=== PATIENT | female | born 1970 | race Caucasian/White ===

== ENCOUNTER → 2016-05-13 | Emergency (ER) | payer MEDICAID ==
[~2016-05-13] VITALS: Ht 170.2 cm; Wt 111.8 kg
[~2016-05-13] MED LIST: AMIO100T4 PO; AMIO200T2 PO; AMIO400T4 PO; ASPI-479 PO; ASPI325T4; ASPIRIN 81 MG CHEW (CHILDREN'S ASA) PO ONE; ATOR40TA2 PO; CARV25TA30 PO; CEPH500C PO; DGX.25T PO; ESCI20TA39 PO; FURO20TA4 PO; FURO40TA4 PO; KCL20TCR PO; LEVO125T70 PO; LISI5TAB14 PO; LOVA40TA2 PO; LSNP10T PO; MAGN400T26 PO; MAGN64TA8 PO; METO-270 PO; METO-71 PO; MEXI150C PO; NFLOSA25TA PO; NITR0.4T SL; NITR1PAT26 TD; NITR1PAT62 TD; NITROGLYCERIN SUBLINGUAL 0.4 MG (NITROQUICK) TABLET SL PRN; ONDANSETRON 2 MG/ML (Z0FRAN) 2 ML VIAL IV ONE; PARO20TA57 PO; QUET300T3 PO; RANO10003 PO; RANO500T3 PO; RIVA20TA PO; SODIUM CHLORIDE FLUSH 10 ML SYR IV PRN; SODIUM CHLORIDE FLUSH 3 ML SYR IV PRN; SOTA80TA PO; SPIR25TA PO; SPRN25T PO; TICA90TA PO; VENL150C PO; VENL75TA6 PO; VNL75T GT; morphine INJ 4 MG/ML 1 ML SYRINGE IV PRN
--- OUTSIDE RECORDS SUMMARY | 2016-05-13 22:40 | XMS REPORT | Continuity of Care Document ---
Author Author [facility] Organization [facility] Address Unknown Phone Unavailable Care Team Providers Care Human Resources Director Name Role Phone Terrell Pennington PCP [phone] Source Comments Some departments are not documenting in the electronic medical record. If you do not see the information that you expected, contact Release of Information in the Health Information Management department at [phone] for further assistance in locating additional records.[facility] Active Allergies and Adverse Reactions No Known Allergies Current Medications Prescription Sig. Disp. Refills Start End Date Status Date escitalopram oxalate Take 20 mg by mouth Active (LEXAPRO) 10 mg tablet daily. carvedilol (COREG) 25 mg Take 12.5 mg by mouth Active tablet twice daily. Take with food. ranolazine ER (RANEXA) Take 1,000 mg by mouth Active 1,000 mg tablet twice daily. lisinopril (PRINIVIL; Take 5 mg by mouth daily. Active ZESTRIL) 10 mg tablet furosemide (LASIX) 40 mg Take 40 mg by mouth Active tablet daily. aspirin EC 81 mg tablet Take 81 mg by mouth Active daily. Take with food. atorvastatin (LIPITOR) 80 Take 80 mg by mouth at Active mg tablet bedtime daily. levothyroxine (SYNTHROID) Take 150 mcg by mouth Active 150 mcg tablet daily. nitroglycerin (NITROSTAT) Place 0.4 mg under tongue Active 0.4 mg tablet as Needed for Chest Pain. sotalol (BETAPACE) 80 mg Take 1 Tab by mouth twice 180 Tab 3 12/10/19 Active tablet daily. 16 mexiletine (MEXITIL) 150 Take 1 Cap by mouth twice 180 Cap 3 12/10/19 Active mg capsule daily. 16 QUEtiapine XR(+) Take 1 Tab by mouth at Active (SEROQUEL XR) 300 mg bedtime daily. tablet potassium chloride SR Take 20 mEq by mouth Active (K-DUR) 20 mEq tablet twice daily. Take with a meal and a full glass of water. rivaroxaban (XARELTO) 20 Take 1 Tab by mouth daily 30 Tab 0 05/09/20 06/08/19 Active mg tablet with dinner for 30 days. 16 17 Take with food. Once completed with Xarelto can resume Brilinta BID as previously taken. magnesium oxide (MAG-OX) Take 1 Tab by mouth 90 Tab 3 05/12/19 Active 400 mg tablet daily. 17 ticagrelor (BRILINTA) 90 Take 90 mg by mouth twice 05/09/20 Discontin mg daily. 16 ued magnesium oxide (MAG-OX) Take 1 Tab by mouth 180 Tab 3 05/09/2007/27 Discontin 400 mg tablet daily. 16 17 ued Active Problems Problem Noted Date VT (ventricular tachycardia) (HCC) 05/07/2016 Biventricular ICD (implantable cardioverter-defibrillator) in place 2015 Overview: 10/08/15 Agenus [id number] SN: [id number] (Dr. Salgado) Coronary atherosclerosis of curyung coronary artery Overview: LUTHER to proximal LAD in 2005 at [facility] LUTHER, Integrity to mid RCA in 2011 at [facility] 07/16/15 Left heart cath ([facility]): Occluded RCA with collateral flow. Mild restenosis in prior LAD stent. HLD (hyperlipidemia) HTN (hypertension) Hypothyroidism Ischemic cardiomyopathy Overview: 07/14/15 Echo ([facility]): LV systolic function moderate to severely reduced. EF 25-30%. Inferior wall akinesis. Mild MR. LV severely dilated. LA mildly dilated. NJ (myocardial infarction) (HCC) Paroxysmal atrial fibrillation (HCC) Sustained ventricular tachycardia (HCC) Systolic heart failure (HCC) Most Recent Encounters Date Type Specialty Providers Description 05/12/2016 Refill Cardiology Myrtle Dixon, shuttle repairer Refill 05/07/2016 Documentation Cardiology Aura Dias RN 05/07/2016 Surgery Cardiology Candice Moody, Ventricular Tachycardia Radiofrequency Ablation 05/05/2016 Office Visit Cardiology Candice Moody, Cardiac Eval - H&P for VT ablation 03/19/16; needs labs today 05/05/2016 [facility] Cardiology LakkiredCandice tran Encounter MD 05/05/2016 Telephone Cardiology Jaycob Clement RN Procedure - review pre-procedure instructions for 05/07 VT ablation w/ DJL 05/05/2016 Pre-Admit Cardiology Abril Rubin APRN-C Orders Only 04/21/2016 Documentation Cardiology Kyle Ponce RN Precertification - Approval for EPS/RFA through [employer] 03/16/2016 Telephone Cardiology Kianna Kent LPN Procedure - Ablation 03/13/2016 Orders Only Cardiology Denise Gold Biventricular ICD (implantable cardioverter-defibrillato r) in place (Primary Dx) 03/05/2016 Documentation Cardiology Kyle Ponce RN Precertification - Approval for EPS/RFA through [employer] Social History Tobacco Use Types Packs/Day Years Used Date Current Every Day Smoker Cigarettes 0.5 22 Smokeless Tobacco: Never Used Alcohol Use Drinks/Week oz/Week Comments No 0 Standard 0.0 drinks or equivalent Last Filed Vital Signs Vital Sign Reading Time Taken Blood Pressure 111/61 05/09/2016 12:03 PM MATERIAL HANDLER Pulse 76 05/09/2016 10:00 AM MATERIAL HANDLER Temperature 36.4 C (97.6 F) 05/09/2016 12:03 PM MATERIAL HANDLER Respiratory Rate - - Height 1.702 m (5' 7") 05/07/2016 5:55 AM MATERIAL HANDLER Weight 113.3 kg (249 lb 12.5 oz) 05/09/2016 6:00 AM MATERIAL HANDLER Body Mass Index 39.11 05/09/2016 6:00 AM MATERIAL HANDLER Oxygen Saturation 97% 05/09/2016 12:03 PM MATERIAL HANDLER Plan of Care Date Type Specialty Providers Description 06/05/2016 Appointment Cardiology Health Maintenance Due Date Last Done Comments Physical (Comprehensive) 02/20/1976 Exam Pertussis Vaccine 02/20/1980 Tetanus Vaccine 1986 Cervical Cancer Screening 1990 Breast Cancer Screening 2009 Influenza Vaccine 01/09/2016 Procedures from Last 3 Months Procedure Name Priority Date/Time Associated Diagnosis Comments TELEMETRY STRIPS-SCAN 05/13/2016 Results for this 11:33 AM MATERIAL HANDLER procedure are in the results section. ECG-SCAN 05/13/2016 Results for this 9:21 AM MATERIAL HANDLER procedure are in the results section. ECG-SCAN 05/13/2016 Results for this 9:21 AM MATERIAL HANDLER procedure are in the results section. ANESTHESIA ARTERIAL LINE Routine 05/07/2016 Results for this INSERTION 8:59 AM MATERIAL HANDLER procedure are in the results section. Results from Last 3 Months TELEMETRY STRIPS-SCAN (05/13/2016 11:33 AM) Narrative Ordered by an unspecified provider. ECG-SCAN (05/13/2016 9:21 AM) Narrative Ordered by an unspecified provider. ECG-SCAN (05/13/2016 9:21 AM) Narrative Ordered by an unspecified provider. MAGNESIUM (05/09/2016 3:05 AM)Only the most recent of 4 results within the time period is included. Component Value Range Magnesium 2.0 1.6-2.6 mg/dL Specimen Blood BASIC METABOLIC PANEL (05/09/2016 3:05 AM)Only the most recent of 5 results within the time period is included. Component Value Range Sodium 135 (L) 137-147 MMOL/L Potassium 4.2 3.5-5.1 MMOL/L Chloride 104 98-110 MMOL/L CO2 26 21-30 MMOL/L Anion Gap 5 3-12 Glucose 89 70-100 MG/DL Blood Urea Nitrogen 12 7-25 MG/DL Creatinine 0.84 0.4-1.00 MG/DL Calcium 8.4 (L) 8.5-10.6 MG/DL eGFR Non >60Comment: >60 mL/min The eGFR is not validated for use in drug dosing adjustments. Continue to use estimated creatinine clearance per dosing reference text. Please contact the Clinical Pharmacist for questions. eGFR >60Comment: >60 mL/min The eGFR is not validated for use in drug dosing adjustments. Continue to use estimated creatinine clearance per dosing reference text. Please contact the Clinical Pharmacist for questions. Specimen Blood BNP (B-TYPE NATRIURETIC PEPTI) (05/09/2016 3:05 AM) Component Value Range B Type Natriuretic 150.0 (H) 0-100 PG/ML Peptide Specimen Blood CBC (05/08/2016 10:05 AM)Only the most recent of 2 results within the time period is included. Component Value Range White Blood Cells 9.7 4.5-11.0 K/UL RBC 3.52 (L) 4.0-5.0 M/UL Hemoglobin 10.7 (L) 12.0-15.0 GM/DL Hematocrit 33.1 (L) 36-45 % MCV 94.1 80-100 FL MCH 30.5 26-34 PG MCHC 32.4 32.0-36.0 G/DL RDW 16.0 (H) 11-15 % Platelet Count 242 150-400 K/UL MPV 8.0 7-11 FL Specimen Blood DEVICE EVALUATION - ICD (05/07/2016 3:34 PM)Only the most recent of 2 results within the time period is included. Component Value Range Device Implanted By Dr Damian simpson [facility] EP Device Followed by BRITTANY and Damian in [facility] Name RENAY/EOL Indicator 2.73V Generator [facility] [employer] Generator Model # Viva XT CRTD [id number] Generator Serial # [id number] Generator Implnat Date 10/08/15 Atrial Lead [facility] [employer] Atrial Lead Model # 5076 Atrial Lead Serial # [id number] Atrial Lead Implant Date 04/15/10 RV Lead [facility] [employer] RV Lead Model # 6947 RV Lead Serial # [id number] RV Lead Implant Date 04/15/10 LV Lead [facility] [employer] LV Lead Model # 4196 LV Lead Serial # [id number] LV Lead Implant Date 04/15/10 Pacemaker Dependant No Device [place] [employer] Express Transmitter Compatible Device Type ASSISTANT KITCHEN MANAGER-D EP Device Followed By Other Date of Last Programming 05/05/16 Date of Last 05/05/16 Interrogation Device Mode DDD Lower Rate Limit 50 Upper Rate Limit 130 Sensor Rate Limit 120 Pace AV Delay 150 Sense AV Delay 130 VT Monitor OFF VT Detect Rate (bpm) 167 bp, VT Detect Rate Tx ATP, Shock FVT Detect Rate (bpm) 214 bpm FVT Detect Rate Tx ATP, Shock VF Detect Rate (bpm) 188 bpm VF Detect Rate Tx ATP, Shock Mode Switch (bpm) 150 Date of Last ICM 05/05/16 Evaluation Enrollment Date req trsfr 05/05/16 Remote Monitoring? Yes HF Patient No Narrative KU IP Post VT ablation check by MDT rep. WNL. See attached for more information. 94.9% pacing. 32 min/day V sensed events since 05/05/16. LV output adjusted based on thresholds. See attached for more information. Routed to Dr Moody in lab. POC ACTIVATED CLOTTING TIME (05/07/2016 3:05 PM)Only the most recent of 2 results within the time period is included. Component Value Range Activated Clotting Time 173 s EP STUDY (05/07/2016 12:52 PM) Narrative OYSTER FLOATER: Candice Moody MD Fellow: Jair Magana MD STUDY: MAGNETIC-VT TYPE OF PROCEDURE: Comprehensive electrophysiologic study with RV catheter and LV mapping. Right femoral arterial line placement. Right and left femoral venous access placement. Transseptal puncture with left atrial and left ventricular access. General anesthesia Three-dimensional electroanatomic mapping of the left ventricle. Stereotaxis navigation system for mapping and ablation. Radiofrequency ablation of the myocardial substrate for ventricular tachycardia. - ablation in left ventricle Interventricular pacing. Reprogramming of the ASSISTANT KITCHEN MANAGER-D before and after the procedure. Intracardiac echocardiography. Defibrillation twice for unstable VT induced during the study CONSENT: The risks, benefits and alternatives to the procedure have been explained to the patient and the family member in greater length. They expressed their understanding and wanted to proceed. General anesthesia was given. Blood pressure, oxygen saturation, pulse rate were monitor throughout the procedure by physicians, nursing staff and techs. Supplemental oxygen was used when it was necessary. LOCAL ANESTHESIA: 0.25% marcaine was used for local anesthesia. CATHETER PLACEMENT: The right and left groin were prepped and draped in sterile fashion. After injection of marcaine, access to arterial and venous system was made using modified Seldinger technique and catheters were placed as below. A hexcapolar catheter advanced to the right ventricular apex via an 8 Lithuanian sheath in the left femoral vein. A Butlr AcuNav intracardiac echo catheter was advanced to the right atrium via an 11 Lithuanian sheath in the left groin and was used for transseptal access and ablation. A 5French sheath was placed in the right femoral arteryand connected to pressure bag to monitor blood pressure during the procedure. An 8.5 Lithuanian short sheath was placed in the right femoral vein and was used for mapping and ablation. This sheath was exchanged to a Brooks at the time of transseptal access and exchanged back to 8.5 Lithuanian at the completion of the procedure. PACEMAKER PROGRAMMING AND REPROGRAMMING: Patient's ASSISTANT KITCHEN MANAGER-Dwas programmed to DDD rate of 60 and treatment was programmed to "off" at the beginning of the procedure. Patient also was given abxIV to protect device infection. At the completion of the procedure, ASSISTANT KITCHEN MANAGER-D was programmed to DDDR and treatment was programmed to "on". INTRACARDIAC ECHOCARDIOGRAPHY: We passed the 10-Lithuanian Siemens AcuNav catheter through the left femoral venous access into the mid right atrium and cardiac anatomy assessed. There was severe enlargement of all 4 chambers. Left ventricular ejection fraction is about 25 percent with severely depressed function. LV was spherical. The left atrium was also grossly dilated. There was no evidence of any apical clot, pericardial effusions. The right ventricular lead, right atrial lead and the CS lead were clearly apparent with no hanging clots. At this point, we proceeded to do transseptal puncture. SINGLE TRANSSEPTAL PUNCTURE WITH LEFT ATRIAL, LEFT VENTRICULAR ACCESS: Using the [place] needle under the guidance of intracardiac echocardiography and fluoroscopy, we crossed the interatrial septum and accessed the left ventricle with Brooks sheath. The contrast was used to locate the septum. OThe patient was started on heparin after the first transseptal access and ACT was kept>350s. Heparin effect reversed at the completion of the procedure. STEREOTAXIS NAVIGATION AND MAPPING: Using the RMT stereotaxis catheter, we placed it in the LV for mapping and ablation. THREE-DIMENSIONAL ELECTROANATOMICAL MAPPING: We created a voltage and activation map of the left ventricle with more than 500 points with excellent details of scarring and healthy tissue. We delineated the scar which was mostly limited to the inferior aspect of the LV extending from the base all the way towards the distal one third of the LV. There was also patchy scar in the LCx distribution.We also tagged the late potentials and the fractionated potentials along the scar as well as the scar border. While mapping she went into VT multiple times during the procedure. She was also inducible with burst pacing and ventricular extrastimulus pacing. She had 4 VT morphologies all together. VT1 - RBBB type biphasic in precordial leads, superior axis positive in 1 and avL and avR - origin likely from mid inferoseptum scar border- CL380 msec - stable VT2 - LBBB type biphasic in precordial leads, superior axis similar to VT1 except lead 1 which is biphasic and slightly more negative than VT1 precordial leads so more mid inferior septum origin slighly more anterior than VT1 exit - CL 280 msec - unstable - required Defibrillation VT3-RBBB type biphasic in precordial leads, superior axis, biphasic in lead 1and positive in avL similar to VT2 but much slower at 680 msec CL - stable VT4 - RBBB type biphasic in precordial leads, inferior axis, negative in lead 1 and avL - origin from mid anterolateral LV - CL 380 msec - unstable - required defibrillation VT5- RBBB typebiphasic in precordial leads, inferior axis, predominantly negative in lead 1 and avL - origin from mid lateral LV - CL 410 msec - stable - this was entrained WE found extensive channels through out the scar region in the inferior scar. She kept going into VT with catheter contact with these channels while mapping in her inferior scar. Surprisingly she had VT from her lateral scar as well while mapping due to catheter contact. We ablated all the LAVA and mid diastolic and late diastolic potentials. WE ablated wherever she had VT with catheter contact. WE ablated whatever we though was an isthmus site based on concealed fusion while pacing during VT. We then went ahead and did some substrate modification of all her border areas.After this, we performed an EP study and showed that we could not induce his VT despite aggressive RV burst pacing and ventricular extrastimulus pacing using two ventricular extrasystoles. Her EP study findings were as follows:Her transseptal pressure was 34/12. Baseline: SOLAR SALES at 750 msec CL, P 89 msec, P 147 msec QRS 205 msec QT 470 msec Final: [employer] CL 740 msec P 90 msec SD 150 msec QRS 174 msec QT 489 msec Her device was reprogrammed.His therapies were switched on at the end of ablation. She was then transferred to the pre/post area. Total ablation time: 5296 sec Assessment: Successful VT ablation of 5 different morphology VTs. ABlation of border zones of inferior scar and within lateral scar Extensive inferior scar and patchy basal naz lateral scar Severly negatively remodelled LV Plan: Anticoagulation for 4 weeks Continue antiarrythmic therapy with sotalol. I was present in the EP lab through out the critical portions of the procedure and supervised the fellow. I was present for the entire procedure and had personally supervised the fellow through out the case. Candice Moody MD POC ACTIVATED CLOTTING TIME (05/07/2016 12:03 PM)Only the most recent of 8 results within the time period is included. Component Value Range Activated Clotting Time 355 s ANESTHESIA ARTERIAL LINE INSERTION (05/07/2016 8:59 AM) Fran Miranda DO 05/07/20168:59 AM Anesthesia Procedure: Arterial Line Placement A-LINE INSERTION Date/Time: 05/07/2016 8:59 AM Patient location: OR Indications: multiple ABGs and hemodynamic monitoring Staff Anesthesiologist: TREY MIRANDA Preprocedure checklist performed: 2 patient identifiers, risks & benefits discussed, patient evaluated, timeout performed, consent obtained and patient being monitored Sterile technique: - Proper hand washing - Cap, mask - Sterile gloves - Skin prep for antisepsis Arterial Line Procedure Patient sedated: yes (see MAR) Sedation type: fentanyl and midazolam; Artery prepped with chlorhexidine; skin prep agent completely dried prior to procedure. Location: radial artery Technique: palpation Needle gauge: 20 G Number of attempts: 2 Procedure Outcome Catheter secured with adhesive dressing applied Events: no complications noted during insertion and skin intact, warm, and dry Observation: pt tolerated well POC PT/INR (05/07/2016 6:39 AM) Component Value Range INR POC 1.0 0.8-1.2 TYPE & CROSSMATCH (05/07/2016 6:36 AM) Component Value Range Units Ordered 2 Crossmatch Expires 05/10/2016 Record Check FOUND ABO/RH(D) O POS Antibody Screen NEG Specimen Blood TEST-URINE (05/07/2016 6:15 AM) Component Value Range Urine-HCG NEG Specific [place] 1.029 Specimen Urine
[2016-05-13 23:20] LABS: ALBUMIN 3.9 g/dL (3.4-5.0); CALCULATED IONIZED CALCIUM 3.9 mg/dL (3.8-4.6); TOTAL PROTEIN 7.3 g/dL (6.4-8.5)
[2016-05-13 23:21] LABS: BASOPHILS % (AUTO) 0 % (0-2); EOSINOPHILS # (AUTO) 0.2 10^3uL; EOSINOPHILS % (AUTO) 2 % (0-4); MEAN CORPUSCULAR HEMOGLOBIN 30.7 PG (26.0-34.0); MEAN CORPUSCULAR HGB CONC 33.3 g/dL (31.0-37.0); MEAN CORPUSCULAR VOLUME 92 FL (80-100); MEAN PLATELET VOLUME 10.2 FL (6.0-9.5); MONOCYTES % (AUTO) 12 % (3-11); NEUTROPHILS # (AUTO) 5.7 X10^3; NEUTROPHILS % (AUTO) 64 % (51-67); PLATELET COUNT 237 10^3uL (150-450); WHITE BLOOD COUNT 8.95 10^3uL (4.0-11.0)
--- NOTE | 2016-05-13 23:22 | NUR ---
Did not admin ASA as patient was advised by 911 to take 4 baby asapirin and had already taken.
[2016-05-14 00:43] VITALS: BP 83/60
--- NOTE | 2016-05-14 07:23 | Diagnostic Imaging Report ---
INDICATION: Cardiac palpitation. 2315 hrs. FINDINGS: Since 03/26/2016, generalized cardiomegaly persists. Pulmonary vascularity is prominent without overt edema identified. Internal cardiac defibrillator device is noted without evidence of pneumothorax. IMPRESSION: Cardiomegaly and mildly prominent pulmonary vascularity. There is no overt edema or evidence of adverse change. Dictated by: Dictated on workstation # [id number]
== END | disposition short-term general hospital (02) ==
LOC: ED 22:35
DX: I48.91 Unspecified atrial fibrillation (principal); I25.10 Atherosclerotic heart disease of native coronary artery without angina pectoris; F17.210 Nicotine dependence, cigarettes, uncomplicated; Z95.810 Presence of automatic (implantable) cardiac defibrillator; J44.9 Chronic obstructive pulmonary disease, unspecified
CPT/HCPCS: 36415; 71010; 80053; 82550; 82553; 83735; 83880; 84484; 85025; 85610; 85730; 93005; 96360; 96361; 99285; J7030; 93010

== ENCOUNTER → 2016-05-13 | Outpatient (CLI) | payer MEDICAID ==
[~2016-05-13] MED LIST changes: -ASPIRIN 81 MG CHEW (CHILDREN'S ASA) PO ONE; -NITROGLYCERIN SUBLINGUAL 0.4 MG (NITROQUICK) TABLET SL PRN; -ONDANSETRON 2 MG/ML (Z0FRAN) 2 ML VIAL IV ONE; -SODIUM CHLORIDE FLUSH 10 ML SYR IV PRN; -SODIUM CHLORIDE FLUSH 3 ML SYR IV PRN; -morphine INJ 4 MG/ML 1 ML SYRINGE IV PRN
== END ==
LOC: EMS 22:20
PROVIDERS: ATTEND Family Medicine
DX: I49.8 Other specified cardiac arrhythmias (principal); Z95.0 Presence of cardiac pacemaker; Z95.818 Presence of other cardiac implants and grafts

== ENCOUNTER → 2016-05-14 | Outpatient (CLI) | payer MEDICAID | LOC: EMS 00:40 | PROVIDERS: ATTEND Family Medicine | DX: I48.91 Unspecified atrial fibrillation (principal); I21.4 Non-ST elevation (NSTEMI) myocardial infarction ==

== ENCOUNTER 2016-05-17 14:34 | Emergency (ER) | payer MEDICAID ==
[~2016-05-17] VITALS: Ht 170.2 cm; Wt 111.8 kg
[~2016-05-17 14:34] MED LIST changes: -MAGN64TA8 PO; -NFLOSA25TA PO; -SPIR25TA PO
--- OUTSIDE RECORDS SUMMARY | 2016-05-17 14:40 | XMS REPORT | Continuity of Care Document ---
Author Author [facility] Organization [facility] Address Unknown Phone Unavailable Care Team Providers [employer] Workers Name Role Phone Terrell Pennington PCP [phone] Source Comments Some departments are not documenting in the electronic medical record. If you do not see the information that you expected, contact Release of Information in the Health Information Management department at [phone] for further assistance in locating additional records.[facility] Active Allergies and Adverse Reactions No Known [...] (implantable cardioverter-defibrillator) in place 2015 Overview: 10/08/15 Immunologix [id number] SN: [id number] (Dr. Salgado) Coronary atherosclerosis of [place] coronary artery Overview: LUTHER to proximal LAD in 2005 at [facility] LUTHER, Integrity to mid RCA in 2011 at [facility] 07/16/15 Left heart cath ([facility]): Occluded RCA with collateral flow. Mild restenosis in prior LAD stent. HLD (hyperlipidemia) HTN (hypertension) Hypothyroidism Ischemic cardiomyopathy Overview: 07/14/15 Echo ([facility]): LV systolic function moderate to severely reduced. EF 25-30%. Inferior wall akinesis. Mild MR. LV severely dilated. LA mildly dilated. IA (myocardial infarction) (HCC) Paroxysmal atrial fibrillation (HCC) Sustained ventricular tachycardia (HCC) Systolic heart failure (HCC) Most Recent Encounters Date Type Specialty Providers Description 05/12/2016 Refill Cardiology Myrtle Dixon, glue clamp operator Refill 05/07/2016 Documentation Cardiology Aura Dias RN 05/07/2016 Surgery Cardiology Candice Moody, Ventricular Tachycardia Radiofrequency Ablation 05/05/2016 Office Visit Cardiology Candice Moody, Cardiac Eval - H&P for VT ablation 03/19/16; needs labs today 05/05/2016 [facility] Cardiology LakkiredCandice tran Encounter MD 05/05/2016 Telephone Cardiology Jaycob Clement RN Procedure - review pre-procedure instructions for 05/07 VT ablation w/ DJL 05/05/2016 Pre-Admit Cardiology Abril Rubin, TYING MACHINE OPERATOR-C Orders Only 04/21/2016 Documentation Cardiology Kyle Ponce RN Precertification - Approval for EPS/RFA through [employer] 03/16/2016 Telephone Cardiology Kianna Kent LPN Procedure - Ablation 03/13/2016 Orders Only Cardiology Denise Gold Biventricular ICD (implantable cardioverter-defibrillato r) in place (Primary Dx) 03/05/2016 Documentation Cardiology Kyle Ponce RN Precertification - Approval for EPS/RFA through [employer] Social History Tobacco Use Types Packs/Day Years Used Date Current Every Day Smoker Cigarettes 0.5 22 Smokeless Tobacco: Never Used Alcohol Use Drinks/Week oz/Week Comments No 0 Standard 0.0 drinks or equivalent Last Filed Vital Signs Vital Sign Reading Time Taken Blood Pressure 111/61 05/09/2016 12:03 PM WIRELESS WATCHER Pulse 76 05/09/2016 10:00 AM WIRELESS WATCHER Temperature 36.4 C (97.6 F) 05/09/2016 12:03 PM WIRELESS WATCHER Respiratory Rate - - Height 1.702 m (5' 7") 05/07/2016 5:55 AM WIRELESS WATCHER Weight 113.3 kg (249 lb 12.5 oz) 05/09/2016 6:00 AM WIRELESS WATCHER Body Mass Index 39.11 05/09/2016 6:00 AM WIRELESS WATCHER Oxygen Saturation 97% 05/09/2016 12:03 PM WIRELESS WATCHER Plan of Care Date Type Specialty Providers Description 05/26/2016 Appointment Cardiology 05/26/2016 Appointment Cardiology Candice Moody MD [address] [facility] [address] [place] [address] [phone] (Fax) 06/05/2016 Appointment Cardiology Health Maintenance Due Date Last Done Comments Physical (Comprehensive) 02/20/1976 Exam Pertussis Vaccine 02/20/1980 Tetanus Vaccine 1986 Cervical Cancer Screening 1990 Breast Cancer Screening 2009 Influenza Vaccine 01/09/2016 Procedures from Last 3 Months Procedure Name Priority Date/Time Associated Diagnosis Comments ECG UNCONFIRMED-SCAN 05/13/2016 Results for this 2:00 PM WIRELESS WATCHER procedure are in the results section. TELEMETRY STRIPS-SCAN 05/13/2016 Results for this 11:33 AM WIRELESS WATCHER procedure are in the results section. ECG-SCAN 05/13/2016 Results for this 9:21 AM WIRELESS WATCHER procedure are in the results section. ECG-SCAN 05/13/2016 Results for this 9:21 AM WIRELESS WATCHER procedure are in the results section. ANESTHESIA ARTERIAL LINE Routine 05/07/2016 Results for this INSERTION 8:59 AM WIRELESS WATCHER procedure are in the results section. Results from Last 3 Months ECG UNCONFIRMED-SCAN (05/13/2016 2:00 PM) Narrative Ordered by an unspecified provider. TELEMETRY STRIPS-SCAN (05/13/2016 11:33 AM) Narrative Ordered [...] Value Range Device Implanted By Dr Damian Green [place] EP Device Followed by BRITTANY and Damian in [facility] Name RENAY/EOL Indicator 2.73V Generator Linux Security Administrator [employer]onic Generator Model # Viva XT CRTD [id number] Generator Serial # [id number] Generator Implnat Date 10/08/15 Atrial Lead Linux Security Administrator [employer]onic Atrial Lead Model # 5076 Atrial Lead Serial # [id number] Atrial Lead Implant Date 04/15/10 RV Lead Linux Security Administrator [employer]onic RV Lead Model # 6947 RV Lead Serial # [id number] RV Lead Implant Date 04/15/10 LV Lead Linux Security Administrator Med[employer]onic LV Lead Model # 4196 LV Lead Serial # [id number] LV Lead Implant Date 04/15/10 Pacemaker Dependant No Device [place] Carelink Express Transmitter Compatible Device Type TRAIN STARTER-D EP Device Followed By Other Date of [...] s EP STUDY (05/07/2016 12:52 PM) Narrative ASSISTANT WRESTLING COACH: Candice Moody MD Fellow: Jair Magana MD [...] left ventricle Interventricular pacing. Reprogramming of the TRAIN STARTER-D before and after the procedure. Intracardiac echocardiography. [...] the right ventricular apex via an 8 Qatari sheath in the left femoral vein. A Siemens AcuNav intracardiac echo catheter was advanced to the right atrium via an 11 Qatari sheath in the left groin and was used for transseptal access and ablation. A 5French sheath was placed in the right femoral arteryand connected to pressure bag to monitor blood pressure during the procedure. An 8.5 Qatari short sheath was placed in the right femoral vein and was used for mapping and ablation. This sheath was exchanged to a Brooks at the time of transseptal access and exchanged back to 8.5 Qatari at the completion of the procedure. PACEMAKER PROGRAMMING AND REPROGRAMMING: Patient's TRAIN STARTER-Dwas programmed to DDD rate of 60 and treatment was programmed to "off" at the beginning of the procedure. Patient also was given abxIV to protect device infection. At the completion of the procedure, TRAIN STARTER-D was programmed to DDDR and treatment was programmed to "on". INTRACARDIAC ECHOCARDIOGRAPHY: We passed the 10-Qatari Siemens AcuNav catheter through the left femoral [...] procedure. STEREOTAXIS NAVIGATION AND MAPPING: Using the T stereotaxis catheter, we placed it in the [...] as follows:Her transseptal pressure was 34/12. Baseline: STATE HISTORICAL SOCIETY DIRECTOR at 750 msec CL, P 89 msec, P 147 msec QRS 205 msec QT 470 msec Final: STATE HISTORICAL SOCIETY DIRECTOR CL 740 msec P 90 msec ND 150 msec QRS 174 msec QT 489 [...] AM) Component Value Range Urine-HCG NEG Specific [place] 1.029 Specimen Urine
[2016-05-17] MEDS ORDERED: morphine INJ 4 MG/ML 1 ML SYRINGE IV PRN (14:45)
[2016-05-17] MEDS ORDERED: NITROGLYCERIN SUBLINGUAL 0.4 MG (NITROQUICK) TABLET SL PRN (14:45)
[2016-05-17] MEDS ORDERED: ASPIRIN 81 MG CHEW (CHILDREN'S ASA) PO ONE (14:45)
[2016-05-17] MEDS ORDERED: SODIUM CHLORIDE 250 ML IV PRN (14:45)
[2016-05-17] MEDS ORDERED: SODIUM CHLORIDE FLUSH 3 ML SYR IV PRN (14:45)
[2016-05-17] MEDS ORDERED: ONDANSETRON 2 MG/ML (Z0FRAN) 2 ML VIAL IV ONE (14:45)
[2016-05-17] MEDS ORDERED: SODIUM CHLORIDE FLUSH 10 ML SYR IV PRN (14:45)
[2016-05-17 15:04] LABS: BASOPHILS % (AUTO) 0 % (0-2); EOSINOPHILS # (AUTO) 0.1 10^3uL; EOSINOPHILS % (AUTO) 1 % (0-4); LYMPHOCYTES # (AUTO) 1.3 X10^3; MEAN CORPUSCULAR HEMOGLOBIN 31.4 PG (26.0-34.0); MEAN CORPUSCULAR HGB CONC 33.5 g/dL (31.0-37.0); MEAN CORPUSCULAR VOLUME 94 FL (80-100); MEAN PLATELET VOLUME 9.7 FL (6.0-9.5); MONOCYTES # (AUTO) 0.7 X10^3; MONOCYTES % (AUTO) 9 % (3-11); NEUTROPHILS # (AUTO) 5.9 X10^3; NEUTROPHILS % (AUTO) 73 % (51-67); PLATELET COUNT 258 10^3uL (150-450)
[2016-05-17 15:14] LABS: ALBUMIN 3.6 g/dL (3.4-5.0); CALCULATED IONIZED CALCIUM 3.8 mg/dL (3.8-4.6); TOTAL PROTEIN 7.2 g/dL (6.4-8.5)
--- NOTE | 2016-05-17 16:04 | Diagnostic Imaging Report ---
INDICATION: Chest pain. Pacemaker. COMPARISON: 05/13/16. EXAMINATION: Single view of the chest was obtained. FINDINGS: Cardiac enlargement without pulmonary edema. Lungs are clear. There is no pneumothorax, effusion or infiltrate. Pacemaker is stable. IMPRESSION: No acute cardiopulmonary findings. Dictated by: Dictated on workstation # [id number]
--- NOTE | 2016-05-17 16:38 | NUR ---
er dr gives order to take IV site out, pt laughing in room, asymptomatic
--- NOTE | 2016-05-17 16:38 | NUR ---
DR. MIKE SPEAKS WITH DR. DOUGLAS, PER PHONE, ABOUT FINDINGS/PLAN OF CARE.
--- NOTE | 2016-05-17 16:56 | NUR ---
dr conn called by er dr. luevano to go home, pt agrees to this, refuses wc for departure,
== END 2016-05-17 16:56 | disposition home or self-care (01) ==
LOC: EDUNIT# 14:34 → EDBD 14:34 → ED 14:35
DX: R00.2 Palpitations (principal); I45.10 Unspecified right bundle-branch block; R00.0 Tachycardia, unspecified
CPT/HCPCS: 36415; 71010; 80053; 82550; 82553; 83880; 84484; 85025; 85610; 85730; 93005; 96374; 99285; A9270; J2405; 93010

== ENCOUNTER → 2016-05-17 | Outpatient (CLI) | payer MEDICAID | LOC: EMS 14:30 | PROVIDERS: ATTEND Emergency Medicine | DX: R00.2 Palpitations (principal); Z95.0 Presence of cardiac pacemaker ==

== ENCOUNTER → 2016-05-28 | Outpatient (REF) | payer MEDICAID ==
[2016-05-28 17:30] LABS: MEAN CORPUSCULAR HEMOGLOBIN 29.7 PG (26.0-34.0); MEAN CORPUSCULAR VOLUME 93 FL (80-100); MEAN PLATELET VOLUME 10.2 FL (6.0-9.5); PLATELET COUNT 426 10^3uL (150-450); WHITE BLOOD COUNT 9.81 10^3uL (4.0-11.0)
[2016-05-28 18:01] LABS: BAND NEUTROPHILS % 1 % (0-6); EOSINOPHILS % 2 % (0-4); LYMPHOCYTES # 1.7 #; MONOCYTES % 11 % (3-11); POLYCHROMASIA SLIGHT; RBC MORPH SEE REFERENCE (NORMAL); SEGMENTED NEUTROPHILS % 65 % (51-67); TOTAL CELLS COUNTED 100
== END ==
LOC: LAB 16:53
PROVIDERS: ATTEND Family Medicine
DX: N92.0 Excessive and frequent menstruation with regular cycle (principal)
CPT/HCPCS: 85025

== ENCOUNTER → 2016-07-13 | Outpatient (CLI) | payer MEDICAID | LOC: EMS 11:12 | PROVIDERS: ATTEND Internal Medicine Cardiovascular Disease | DX: R00.2 Palpitations (principal); R06.02 Shortness of breath ==

== ENCOUNTER → 2016-07-30 | Outpatient (CLI) | payer MEDICAID ==
[2016-07-30 13:57] LABS: MEAN CORPUSCULAR HGB CONC 32.4 g/dL (31.0-37.0); MEAN PLATELET VOLUME 10.3 FL (6.0-9.5); WHITE BLOOD COUNT 5.37 10^3uL (4.0-11.0)
[2016-07-30 14:13] LABS: ANION GAP 13.3 MEQ/L (3-15)
== END ==
LOC: LAB 13:30
PROVIDERS: ATTEND Internal Medicine Cardiovascular Disease
DX: Z01.812 Encounter for preprocedural laboratory examination (principal); I25.10 Atherosclerotic heart disease of native coronary artery without angina pectoris
CPT/HCPCS: 36415; 80048; 85027

== ENCOUNTER 2016-08-06 21:16 | Emergency (ER) | payer MEDICAID ==
[~2016-08-06] VITALS: Ht 170.2 cm; Wt 106.4 kg
[~2016-08-06 21:16] MED LIST changes: -MAGN64TA8 PO; -NFLOSA25TA PO; -SPIR25TA PO
--- OUTSIDE RECORDS SUMMARY | 2016-08-06 21:19 | XMS REPORT | Continuity of Care Document ---
Author Author [facility] Organization [facility] Address Unknown Phone Unavailable Care Team Providers Care Porcelain Enamel Installer Name Role Phone Terrell Pennington PCP [phone] Source Comments Some departments are not documenting in the electronic medical record. If you do not see the information that you expected, contact Release of Information in the Health Information Management department at [phone] for further assistance in locating additional records.[facility] Active Allergies and Adverse Reactions Allergen Noted Date Severity Reactions Comments Prozac 07/14/2016 Low AGITATION makes pt violent Current Medications Prescription Sig. Disp. Refills Start End Date Status Date escitalopram oxalate Take 20 mg by mouth Active (LEXAPRO) 10 mg tablet daily. carvedilol (COREG) 25 mg Take 12.5 mg by mouth Active tablet twice daily. Take with food. ranolazine ER (RANEXA) Take 1,000 mg by mouth Active 1,000 mg tablet twice daily. furosemide (LASIX) 40 mg Take 40 mg [...] (SEROQUEL XR) 300 mg bedtime daily. tablet ticagrelor (BRILINTA) 90 Take 90 mg by mouth twice Active mg daily. losartan (COZAAR) 25 mg Take 1 Tab by mouth 30 Tab 5 07/11/19 Active tablet daily. 17 magnesium chloride (MAG Take 1 Tab by mouth twice 60 Each 5 07/12/19 Active DELAY) 535 mg (64mg daily. 17 elemental) tablet amoxicillin/K clavulanate Take 1 Tab by mouth twice 8 Tab 0 07/11/19 Active (AUGMENTIN) 875/125 mg daily with meals. Take 17 tablet with food. spironolactone Take 1 Tab by mouth 30 Tab 5 07/11/19 Active (ALDACTONE) 25 mg tablet daily. Take with food. 17 nicotine (NICODERM CQ Apply 1 Patch to top of 42 Patch 0 07/11/19 Active STEP 1) 21 mg/day patch skin as directed daily 17 for 42 days. Indications: SMOKING CESSATION triamcinolone acetonide Apply topically to 80 g 0 07/11/19 Active (KENALOG) 0.1 % topical affected area twice 17 cream daily. ketoconazole (NIZORAL) 2 Apply daily to rash under 60 g 0 07/11/19 Active % topical cream breasts, axilla and 17 groin. Mix with zinc oxide paste ergocalciferol (VITAMIN Take 1 Cap by mouth every 4 Cap 0 07/11/19 Active D-2) 50,000 unit capsule 7 days. On - last dose on 08/06/16. May need lower dose at that time- check with PCP. zinc oxide 20 % topical Mix with Ketoconazole and 28 g 0 07/11/19 Active ointment apply daily to rash under 17 breast, axilla and groin tretinoin (RETIN-A) 0.1 % Apply once a week to 45 g 0 07/11/19 Active topical cream axila and groin 17 clindamycin (CLEOCIN) 2 % Apply cream daily to 40 g 0 07/11/19 Active vaginal cream axilla and groin 17 benzoyl peroxide(+) Wash daily with cleanser 142 g 1 07/11/19 Active (BENZAC W WASH) 5 % clsr in axilla and groin 17 chlorhexidine gluconate Swish and Spit 15 mL by 473 mL 0 07/11/19 Active (PERIDEX) 0.12 % solution mouth as directed twice 17 daily after meals. through 07/19/16 potassium chloride SR Take 2 Tabs in morning 180 Cap 3 07/15/19 Active (K-DUR) 20 mEq tablet and 1 in the evening. 17 Indications: HYPOKALEMIA potassium chloride SR Take 20 mEq by mouth 07/15/19 Discontin (K-DUR) 20 mEq tablet twice daily. Take with a 17 ued meal and a full glass of water. magnesium oxide (MAG-OX) Take 1 Tab by mouth 90 Tab 3 05/12/1907/10 Discontin 400 mg tablet daily. 17 17 ued Active Problems Problem Noted Date H/O tooth extraction 07/09/2016 Hidradenitis suppurativa 07/09/2016 Overview: Has had surgery on right axilla Pulmonary hypertension (HCC) 07/06/2016 Stage 3 chronic kidney disease 07/06/2016 Major depressive disorder 07/06/2016 PTSD (post-traumatic stress disorder) 07/06/2016 Panic disorder 07/06/2016 Non-rheumatic mitral regurgitation 07/06/2016 Bilateral carotid artery disease (HCC) 07/02/2016 Overview: Carotid US 07/01/16 showed elevated velocities and turbulent flow by color Doppler indicative of 50-79% (<70% by ratio criteria) stenosis of the bilateral internal carotid arteries. Tobacco abuse 07/02/2016 Vitamin D deficiency 07/02/2016 Overview: 07/01/16 level is 8.4 - started on ergocalciferol 50,000 units weekly x 6 weeks. Anemia 06/30/2016 Chronic pruritus 06/30/2016 Vaginal bleeding 06/30/2016 Biventricular ICD (implantable cardioverter-defibrillator) in place 2015 Overview: 10/08/15 Med[employer]onic [id number] SN: [id number] (Dr. Salgado) L ast Assessment & Plan: Device was checked today and demonstrated normal function. See device check and cardiovascular studies for further details. Coronary atherosclerosis of [place] coronary artery Overview: LUTHER to proximal LAD in 2005 at [facility] LUTHER, Integrity to mid RCA in 2011 at [facility] 07/16/15 Left heart cath ([facility]): Occluded RCA with collateral flow. Mild restenosis in prior LAD stent. L ast Assessment & Plan: Given her sustained ventricular tachycardia and known history of severe CAD, further evaluation is warranted and we recommend that she undergo repeat heart catheterization during her admission. HLD (hyperlipidemia) Essential hypertension Hypothyroidism Last Assessment & Plan: She continues to be on supplemental replacement therapy. Ischemic cardiomyopathy Overview: 07/14/15 Echo ([facility]): LV systolic function moderate to severely reduced. EF 25-30%. Inferior wall akinesis. Mild MR. LV severely dilated. LA mildly dilated. History of ME (myocardial infarction) Paroxysmal atrial fibrillation (HCC) Last Assessment & Plan: No atrial fibrillation per her device. Sustained ventricular tachycardia (HCC) Last Assessment & Plan: Despite prior ablation, she has had sustained ventricular tachycardia (one episode more than 18 hours) with slow ventricular rates (falling below her VT detection rates) despite prior ablation and antiarrhythmic therapy. We have recommended that she be admitted for further evaluation as well as possible repeat VT ablation on or Wednesday after we have stabilized her volume status. 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 Symptomatic complaints and exam findings are consistent with volume overload. We will plan to diuresis her with IV lasix on admit. Most Recent Encounters Date Type Specialty Providers Description 08/03/2016 Telephone Cardiology Carolina dAorno RN Procedure - cancel cath 08/03/2016 Surgery Cardiology Harrison Rosado MD Percutaneous Coronary Intervention Left Anterior Descending Artery 08/03/2016 Hospital Cardiology Harrison Rosado MD Encounter 07/24/2016 Documentation Cardiology Kyle Ponce RN Precertification - Approval for LVCORS through [employer] 07/23/2016 Telephone Cardiology Birgit Krishna RN Procedure - PCI - LAD ([facility] - 08/03) 07/22/2016 Office Visit Cardiology Lillie Alejo MD No Show 07/17/2016 Telephone Cardiology Aracelis Godwin RN Other - Update on patient case meeting 07/15/2016 Documentation Dermatology Brody Winchester MD 07/14/2016 Office Visit Cardiology Yoan Aceves MBBS Cardiac Eval - hospital f/u 07/14/2016 Telephone Cardiology Yana Rosenthal, PHARMD Medication Problem - Tretinoin PA 07/10/2016 [facility] Cardiology Josh Iqbal MD Encounter 07/09/2016 Surgery Cardiology Cath, Physician Coronary Angiography 07/08/2016 Documentation Transplant Surgery Chika Cortez RN 07/07/2016 [facility] Cardiology Shavonne Espana APRN Encounter 07/07/2016 Surgery Mary EllenAlejandro herndon, DDS EXTRACTION MULTIPLE TEETH 07/06/2016 Anesthesia Stacie Sarah, SRNA Event 07/06/2016 Prep for Case Alejandro SaldanaROSALIELamont 07/06/2016 Documentation Transplant Surgery Chika Cortez, GISELA 07/03/2016 Clinical Endocrinology, Metabolism Osteoporosis screening Support & Genetics (Primary Dx) 07/03/2016 Telephone Transplant Surgery Smitha Krishnamurthy Financial/ Insurance Questions - BENEFITS / INSURANCE INFORMATION 07/03/2016 Surgery Cardiology Cath, Physician Left Heart Cath With Ventriculogram 07/02/2016 Documentation Transplant Surgery Chika Cortez, GISELA 07/01/2016 Hospital Cardiology Annette Blas APRN Encounter 07/01/2016 Telephone Transplant Surgery Genet Rodriguez RN Financial/ Insurance Questions 06/30/2016 [facility] Cyndi Edouard MD Acute on chronic combined - Encounter Paddy Aceves MD systolic and diastolic 07/10/2016 Yoan Aceves MBBS heart failure (HCC) Harrison Rosado MD 06/30/2016 [facility] Cardiology Candice Moody, Encounter MD 06/30/2016 [facility] Cardiology Candice Moody, Encounter MD 06/30/2016 Office Visit Cardiology Candice Moody, Cardiac Eval - coronary MD artery disease, chronic RCA occlusion, and mild restenosis of the prior LAD stent 06/30/2016 Ancillary Cardiology Candice Moody, ICD ( implantable Orders cardioverter-defibrillato r), biventricular, in situ (Primary Dx); VT (ventricular tachycardia) (HCC) 06/12/2016 Telephone Cardiology Kianna Kent LPN Medication Question - Stay on Xarelto or continue Brilinta BID. 06/07/2016 Refill Cardiology Alisha Merino MD Medication Refill 05/22/2016 [facility] Cardiology Candice Moody, Encounter MD 05/22/2016 Ancillary Cardiology Candice Moody, ICD ( implantable Orders cardioverter-defibrillato r), biventricular, in situ (Primary Dx) 05/20/2016 Telephone Cardiology Kianna Kent LPN Medication Question - Xarelto 05/12/2016 Refill Cardiology Myrtle Dixon, director of housing and energy services Refill 05/07/2016 [facility] Cardiothoracic Surgery Candice Moody, Sustained ventricular - Encounter MD tachycardia (HCC) 05/09/2016 Immunizations Name Dates Previously Given Next Due HEP A/HEP B Combined 07/04/2016 Vaccine Pneumococcal 07/10/2016, 07/05/2016 Vaccine(13-[facility] P[facility]/immunocompromised adult) Tdap Vaccine 07/10/2016, 07/04/2016 Social History Tobacco Use Types Packs/Day Years Used Date Current Every Day Smoker Cigarettes 1 22 Smokeless Tobacco: Never Used Comments: 1-2 pack per day for 20 years, down to 5-15 cigarettes per day in 2017 Alcohol Use Drinks/Week oz/Week Comments No 0 Standard 0.0 drinks or equivalent Last Filed Vital Signs Vital Sign Reading Time Taken Blood Pressure 108/61 07/14/2016 3:40 PM EMBROIDERY SPECIALIST Pulse 78 07/14/2016 3:40 PM EMBROIDERY SPECIALIST Temperature 36.3 C (97.4 F) 07/10/2016 2:40 PM EMBROIDERY SPECIALIST Respiratory Rate - - Height 1.702 m (5' 7") 07/14/2016 3:40 PM EMBROIDERY SPECIALIST Weight 104.509 kg (230 lb 6.4 07/14/2016 3:40 PM EMBROIDERY SPECIALIST oz) Body Mass Index 36.08 07/14/2016 3:40 PM EMBROIDERY SPECIALIST Oxygen Saturation 97% 07/14/2016 3:40 PM EMBROIDERY SPECIALIST Plan of Care Health Maintenance Due Date Last Done Comments Physical (Comprehensive) 02/20/1976 Exam Cervical Cancer Screening 1990 Breast Cancer Screening 2009 Influenza Vaccine 01/08/2017 Tetanus Vaccine 07/10/2026 07/10/2016, 07/04/2016 Pertussis Vaccine Completed 07/10/2016, 07/04/2016 Procedures from Last 3 Months Procedure Name Priority Date/Time Associated Diagnosis Comments ECG-SCAN 07/16/2016 Results for this 8:47 AM EMBROIDERY SPECIALIST procedure are in the results section. ECG-SCAN 07/14/2016 Results for this 2:02 PM EMBROIDERY SPECIALIST procedure are in the results section. TELEMETRY STRIPS-SCAN 07/13/2016 Results for this 2:26 PM EMBROIDERY SPECIALIST procedure are in the results section. SLEEP STUDY-SCAN 07/13/2016 Results for this 2:06 PM EMBROIDERY SPECIALIST procedure are in the results section. PROCEDURE RECORD-SCAN 07/13/2016 Results for this 12:06 PM EMBROIDERY SPECIALIST procedure are in the results section. PROCEDURE RECORD-SCAN 07/13/2016 Results for this 12:05 PM EMBROIDERY SPECIALIST procedure are in the results section. CONSULT IV THERAPY TEAM Routine 07/08/2016 10:50 PM EMBROIDERY SPECIALIST EXTRACTION MULTIPLE TEETH 07/07/2016 Dental caries extending 5:45 PM EMBROIDERY SPECIALIST into pulp SLEEP STUDY-SCAN 07/07/2016 Results for this 2:47 PM EMBROIDERY SPECIALIST procedure are in the results section. CONSULT IV THERAPY TEAM Routine 07/05/2016 9:32 AM EMBROIDERY SPECIALIST CONSULT IV THERAPY TEAM Routine 07/01/2016 5:40 PM EMBROIDERY SPECIALIST ECG UNCONFIRMED-SCAN 05/13/2016 Results for this 2:00 PM EMBROIDERY SPECIALIST procedure are in the results section. TELEMETRY STRIPS-SCAN 05/13/2016 Results for this 11:33 AM EMBROIDERY SPECIALIST procedure are in the results section. ECG-SCAN 05/13/2016 Results for this 9:21 AM EMBROIDERY SPECIALIST procedure are in the results section. ECG-SCAN 05/13/2016 Results for this 9:21 AM EMBROIDERY SPECIALIST procedure are in the results section. Results from Last 3 Months ECG-SCAN (07/16/2016 8:47 AM) Narrative Ordered by an unspecified provider. POC BASIC METABOLIC PANEL (BMP) (07/14/2016 5:06 PM) Component Value Range Sodium-POC 139 137-147 MMOL/L Potassium-POC 4.4 3.5-5.1 MMOL/L Chloride, POC 103 98-110 MMOL/L CO2, POC 23 21-30 MMOL/L Anion Gap, POC 18 (H) 3-12 Glucose, POC 103 (H) 70-100 MG/DL Bun, POC 9 7-25 MG/DL Creatinine, POC 1.0 0.4-1.00 MG/DL Ionized Calcium-POC 1.19 1.0-1.3 MMOL/L ECG-SCAN (07/14/2016 2:02 PM) Narrative Ordered by an unspecified provider. TELEMETRY STRIPS-SCAN (07/13/2016 2:26 PM) Narrative Ordered by an unspecified provider. SLEEP STUDY-SCAN (07/13/2016 2:06 PM) Narrative Ordered by an unspecified provider. PROCEDURE RECORD-SCAN (07/13/2016 12:06 PM) Narrative Ordered by an unspecified provider. PROCEDURE RECORD-SCAN (07/13/2016 12:05 PM) Narrative Ordered by an unspecified provider. CARDIAC CATH REPORT (07/10/2016 1:51 PM)Only the most recent of 2 results within the time period is included. Procedure Note Bridget Jul 09, 2016 4:24 PM EMBROIDERY SPECIALIST [facility] Cardiology at [facility] CARDIAC CATHETERIZATION REPORT Page 2 LORRI Benavidez : 1970 #: [id number] KU MR #/Billing ID #: [id number] / [id number] DATE: 07/09/2016 BUSINESS LINE MANAGER: Harrison Rosado MD DICTATING PROVIDER: Harrison Rosado MD REFERRING PHYSICIAN: CYNDI EDOUARD MD PROCEDURES PERFORMED: 1. Left heart catheterization. 2. Selective left and right coronary cineangiograms. 3. FFR assessment of the mid LAD with an FFR of 0.74 at rest. PROCEDURE: Ms. Biggs is a 46-year-old female with a history of an ischemic cardiomyopathic process. She is being evaluated for advanced heart failure therapies. She had notable an occluded circ and occluded RCA, and we were discussing the options of percutaneous revascularization. She was brought to the cardiac catheterization lab in a fasting and nonsedated state. IV conscious sedation was monitored by myself, nursing, and technical staff. Oxygen saturation, heart rate, blood pressure, and level of consciousness were assessed throughout the procedure and again at its completion. Moderate IV conscious sedation was monitored and administered for a total duration of 45 minutes throughout the case. The bilateral groins were then prepped and draped in the typical fashion. We infiltrated the right groin with approximately 20 mL of 1% lidocaine and advanced a 7-Filipino arterial sheath. Selective left and right coronary cineangiograms were performed with diagnostic coronary catheters to stage the intervention. We are planning intervention of the RCA. Heparin was then used to maintain a therapeutic ACT. A 7-Filipino AR1 guide was advanced to the ostium of the right coronary artery. We had also elected to go ahead and do FFR assessment of the LAD to assess ischemic burden. We initially attempted to wire the RCA to see if we could advance in an antegrade fashion. After the initial pictures were performed, there was a slight contrast stain at the origin of the RCA, so we elected to abort an antegrade attempt to the RCA and perform FFR assessment of the LAD prior to considering a retrograde approach. The JL4 guide was advanced to the ostium of the left main. We advanced an 0.014 pressure wire into the distal LAD. The resting FFR was noted to be 0.74, indicating this was a hemodynamically significant lesion. At this point, it was elected to go ahead and stop and reconsider the possibility of surgical revascularization versus continuing to pursue a percutaneous approach in this setting. TOTAL CONTRAST: 160 mL of Visipaque 320. TOTAL RADIATION: 1360 mGy of air kerma. FINDINGS: LEFT HEART CATHETERIZATION: Left ventricular end-diastolic pressures were 24 mmHg. There was no gradient across the aortic valve. SELECTIVE LEFT AND RIGHT CORONARY CINEANGIOGRAMS: The left coronary was visualized with the JL4. The left main bifurcated to LAD and circumflex vessel. The left main itself was free of any high-grade focal disease. The LAD was a large caliber vessel with a type 2 configuration. It gave rise to a medium-sized 1st and 2nd diagonal branch. There was a stent to the mid LAD, followed by an ectatic segment. The distal edge of the stent appeared to have at least a 60% lesion with some haziness. The bifurcation of the 2nd diagonal branch had a 70% stenosis. The FFR beyond these 2 tandem lesions was 0.74. When the pullback was performed, the FFR across only the proximal lesion was 0.84, indicating that the tandem lesions were significant. The circumflex was visualized, gave rise to a high obtuse marginal branch. This high obtuse marginal had an intermediate distribution with an 80% ostial lesion and 95% stenosis in the proximal mid segment. The circumflex proper was occluded and appeared to be a bifurcating obtuse marginal system distally, which filled via [id number] collaterals. In addition, there were left-to- right collaterals supplying the posterior descending and posterolateral vessels. The [place] right coronary was visualized with the JR4 catheter. It was noted to be occluded at the midportion. There was a diffuse 40% to 50% stenosis proximally. ASSESSMENT: Severe coronary atherosclerosis manifested by the followin. Tandem lesions in the LAD with a 60% mid and 70% mid distal stenosis with a resting FFR of 0.74. 2. Occluded mid circumflex with [id number] collaterals supplying the distal obtuse marginal branch. 3. A 95% 1st high obtuse marginal stenosis in the proximal midportion. 4. Occluded mid RCA with [id number] collateral supplying the posterior descending posterolateral branch. 5. Elevated left ventricular end-diastolic pressures. PLAN: Will re-discuss the possibility of surgical revascularization versus continued percutaneous approach. MD BEVERLY Bell/Narinder /[id number] p cc: - GENERAL PALLIATIVE CARE - CYNDI DEOUARD MD PV VEIN MAP ARTERIAL BYPASS GRAFT (07/10/2016 1:30 PM) Component Value Range RIGHT VEIN MAP GT 2.6 mm SAPHENOUS AP SAPHENOFEM JUNC RIGHT VEIN MAP GT 3.8 mm SAPHENOUS AP PROXIMAL THIGH RIGHT VEIN MAP GT 2.5 mm SAPHENOUS AP MID THIGH RIGHT VEIN MAP GT 0.11 mm SAPHENOUS AP DISTAL THIGH RIGHT VEIN MAP GT 1.4 mm SAPHENOUS AP KNEE RIGHT VEIN MAP GT 1.8 mm SAPHENOUS AP PROXIMAL CALF RIGHT VEIN MAP GT 2.0 mm SAPHENOUS AP MID CALF RIGHT VEIN MAP GT 2.3 mm SAPHENOUS AP DISTAL CALF RIGHT VEIN MAP GT 2.0 mm SAPHENOUS AP ANKLE LEFT VEIN MAP GT 3.2 mm SAPHENOUS AP SAPHENOFEM JUNC LEFT VEIN MAP GT 2.7 mm SAPHENOUS AP PROXIMAL THIGH LEFT VEIN MAP GT 2.8 mm SAPHENOUS AP MID THIGH LEFT VEIN MAP GT 3.9 mm SAPHENOUS AP DISTAL THIGH LEFT VEIN MAP GT 3.8 mm SAPHENOUS AP KNEE LEFT VEIN MAP GT 2.0 mm SAPHENOUS AP PROXIMAL CALF LEFT VEIN MAP GT 1.7 mm SAPHENOUS AP MID CALF LEFT VEIN MAP GT 2.3 mm SAPHENOUS AP DISTAL CALF LEFT VEIN MAP GT 2.9 mm SAPHENOUS AP ANKLE Narrative 1. Patent greater saphenous veins bilaterally with no evidence of thrombus 2. Measurements as detailed in the report There are no prior studies for comparison. This study was read in conjunction with press cleaner, Dr. Steve Fernando.I have personally reviewed the study and co-formulated the interpretation expressed in this report. MAGNESIUM (07/10/2016 5:17 AM)Only the most recent of 5 results within the time period is included. Component Value Range Magnesium 1.7 1.6-2.6 mg/dL Specimen Blood BASIC METABOLIC PANEL (07/10/2016 5:17 AM)Only the most recent of 16 results within the time period is included. Component Value Range Sodium 136 (L) 137-147 MMOL/L Potassium 4.0 3.5-5.1 MMOL/L Chloride 103 98-110 MMOL/L CO2 25 21-30 MMOL/L Anion Gap 8 3-12 Glucose 90 70-100 MG/DL Blood Urea Nitrogen 12 7-25 MG/DL Creatinine 0.80 0.4-1.00 MG/DL Calcium 9.4 8.5-10.6 MG/DL eGFR Non >60Comment: >60 mL/min [...] the Clinical Pharmacist for questions. Specimen Blood CBC (07/10/2016 5:17 AM)Only the most recent of 12 results within the time period is included. Component Value Range White Blood Cells 6.0 4.5-11.0 K/UL RBC 3.24 (L) 4.0-5.0 M/UL Hemoglobin 9.4 (L) 12.0-15.0 GM/DL Hematocrit 28.8 (L) 36-45 % MCV 88.9 80-100 FL MCH 28.9 26-34 PG MCHC 32.5 32.0-36.0 G/DL RDW 18.7 (H) 11-15 % Platelet Count 202 150-400 K/UL MPV 8.3 7-11 FL Specimen Blood POC ACTIVATED CLOTTING TIME (07/09/2016 7:28 PM)Only the most recent of 7 results within the time period is included. Component Value Range Activated Clotting Time 165 s PROTIME INR (PT) (07/09/2016 5:28 AM)Only the most recent of 2 results within the time period is included. Component Value Range INR 1.2 0.8-1.2 Specimen Blood VRE SCREEN (07/08/2016 3:04 PM)Only the most recent of 2 results within the time period is included. Component Value Range Battery Name VRE SCREEN Specimen Description PERIRECTAL SWAB Special Requests NONE Culture NO VRE ISOLATED Report Status FINAL 07/09/2016 Specimen Perirectal Swab SLEEP STUDY-SCAN (07/07/2016 2:47 PM) Narrative Ordered by an unspecified provider. VIABILITY STUDY (REST AND 4 HOUR DELAY) THALLIUM MPI REST TEST (07/07/2016 8: 16 AM) Component Value Range Rest Dose 3.04 mCi MPI EF 26 % LV volume 352 mL Study Number [id number] Nuclear Cardiology In aggregate the current study is high risk in Mortality Risk regards to predicted annual cardiovascular mortality rate. Narrative Nuclear Report [facility] Cardiology Division of Nuclear Cardiac Imaging Consultation Report EXAMINATION:Resting and delayed (4 hour and/or 24 hour) [id number] Chloride single photon emission computed tomography (SPECT) for myocardial perfusion and viability imaging. Date of Study: 07/07/16 Study#: [id number] LOUIE LOUIE Billing ID:[id number] Referring Physician: Requested by: Shavonne Espana APRN INDICATIONS FOR STUDY (HISTORY):This is a 46-year-old female with a history of ischemic cardiomyopathy.This study is to look for evidence of myocardial viability. PROCEDURAL DETAILS:At rest approximately 3.04 mCi of [id number] Chloride was injected intravenously.Planar and gated tomographic images were obtained.Subsequently, four hour and/or 24 hour planar and tomographic images were then acquired.Qualitative and quantitative polar coordinate mapping was also performed. The rest images were compared to the delay images. FINDINGS: Scintigraphic:The patient underwent a thallium MPI rest test.Resting perfusion and 24-hour post suggest decreased uptake in the inferior septum and basal and mid-inferior septum throughout the inferior wall from the base to the apex.There is decreased uptake in the basal to apical inferolateral wall as well as the basal to apical anterolateral wall. This is a large sized perfusion defect; however all myocardial segments are viable. The left ventricle is severely dilated.The left ventricular end diastolic volume is 352 mL. LEFT VENTRICULAR EJECTION FRACTION:26 percent. Left Ventricular End Diastolic Volume: 352 ml. SUMMARY/OPINION:1.Severely depressed left ventricular systolic function with an ejection fraction calculated to be 26%. 2.Severely dilated left ventricle with a left ventricular end diastolic volume of 352 mL. 3.Completely viable left ventricular myocardium. In aggregate the current study is high risk in regards to predicted annual cardiovascular mortality rate. MD JOSÉ ANTONIO Valencia/BHARGAV DT:07/08/2016 12:25:56 Job #:[id number] GRAM STAIN (07/05/2016 2:25 PM) Component Value Range Battery Name GRAM STAIN Specimen Description SWAB LEFT AXILLA Special Requests NONE Gram Stain NO NEUTROPHILS SEEN FEW SQUAMOUS EPITHELIAL CELLS MODERATE GRAM POSITIVE RODS FEW GRAM POSITIVE COCCI Report Status FINAL 07/05/2016 Specimen Swab CULTURE-WOUND/TISSUE/FLUID(AEROBIC ONLY)W/SENSITIVITY (07/05/2016 2:25 PM) Component Value Range Battery Name ROUTINE CULTURE Specimen Description SWAB LEFT AXILLA Special Requests NONE Direct Gram Stain NO NEUTROPHILS SEEN FEW SQUAMOUS EPITHELIAL CELLS MODERATE GRAM POSITIVE RODS FEW GRAM POSITIVE COCCI Culture Moderate growth STREPTOCOCCUS PYOGENES(GROUP A) Moderate growth STAPHYLOCOCCUS, COAGULASE NEGATIVE Moderate growth CORYNEBACTERIUM SPECIES Report Status FINAL 07/08/2016 Specimen Swab TISSUE TRANSGLUTAMINASE AB IGA (07/03/2016 4:59 AM) Component Value Range Tissue Transglutaminase <1.2 Reference range: <4.0 (Negative) Unit: U/mL [facility] CELIAC DISEASE PANEL (07/03/2016 4:59 AM) Component Value Range Immunoglobulin A (IGA) 254Comment: Reference range: 61 to 356 Unit: mg/dL [facility] Interpretation, Celiac Negative serology. Celiac disease unlikely. However, approximately 10% of patients with celiac disease are seronegative. Also, patients who are already adhering to a gluten-free diet may be seronegative. If celiac disease is highly clinically suspected, consider HLA-DQ typing. [facility] Specimen Blood BONE DENSITY SPINE/HIP (07/03/2016)MRSA SCREEN (07/02/2016 9:00 PM)Only the most recent of 2 results within the time period is included. Component Value Range Battery Name MRSA SCREEN Specimen Description NASAL Special Requests NONE Culture NO MRSA ISOLATED Report Status FINAL 07/04/2016 Specimen Nasal PFT COMPLETE PULM FUNCTION (07/02/2016 9:46 AM) Component Value Range FVC-Pre 2.20 L FVC-%Pred-pre 55 % FEV1-Pre 1.75 L FEV1-%Pred-Pre 55 % [id number]-Exw 1.60 L/sec [id number]-%Pred-Pre 52 % VCSVC-Pre 2.13 L ICSVC-Pre 1.54 L ERVSVC-Pre 0.59 L PEF-Pre 337.2 L/min TGVPleth-Pre 2.46 L RVPleth-Pre 2.10 L RVPleth-%Pred-Pre 111 % TLCPleth-Pre 3.90 L TLCPleth-%Pred-Pre 70 % DLCOunc-Pred 24.25 ml/min/mmHg DLCOunc-Pre 11.28 ml/min/mmHg DLCOunc-%Pred-Pre 46 % DLCOunc-SD 3.75 ml/min/mmHg DLCOunc-LLN 16.75 ml/min/mmHg DLCOunc-ULN 31.75 ml/min/mmHg DLCOunc-#SD -3.458 ml/min/mmHg DLCOcor-Pred 24.25 ml/min/mmHg DLCOcor-Pre 12.86 ml/min/mmHg DLCOcor-%Pred-Pre 53 % DLCOcor-SD 3.75 ml/min/mmHg DLCOcor-LLN 16.75 ml/min/mmHg DLCOcor-ULN 31.75 ml/min/mmHg DLCOcor-#SD -3.037 ml/min/mmHg DLVA-Pred 4.50 ml/min/mmHg/L DLVA-Pre 3.40 ml/min/mmHg/L DLVA-%Pred-Pre 75 % DLVA-SD 0.80 ml/min/mmHg/L DLVA-LLN 2.90 ml/min/mmHg/L DLVA-ULN 6.10 ml/min/mmHg/L DLVA-#SD -1.372 ml/min/mmHg/L Narrative Call [phone] to schedule. Clinical history:->Heart Transplant/VAD Evaluation Is patient ?->No Patient on bronchodilator therapy?->Yes Patient being discharged?->Yes Is this a pre-surgical evaluation?->Yes URINE COLLECTION (07/02/2016 8:48 AM) Component Value Range Collection Period, Urine 24.0 Volume, Urine 2762 MLS CREATININE CLEARANCE-URINE 24H (07/02/2016 8:48 AM) Component Value Range Creatinine,Urine CRCL 36 MG/DL Creatinine, Serum, CRCL 1.40 MG/DL Creatinine Clearance 49 (L) 81-121 mL/min Specimen Urine CREATININE-URINE 24 HR (07/02/2016 8:48 AM) Component Value Range Creatinine, Random 38 MG/DL Creat/24 HR 9135 553-2059 MG/24 HRS Specimen Urine TOTAL PROTEIN-URINE 24 HR (07/02/2016 8:48 AM) Component Value Range Protein, Random 4 MG/DL Protein, 24 HR 110 50-150 MG/24 HRS Specimen Urine ANTI-NUCLEAR AB(DAMIAN)-QUANT (07/02/2016 5:35 AM) Component Value Range DAMIAN Titer/Pattern 320 (H)Comment: SPECKLED <80 ANTI-NUCLEAR ANTIBODY(DAMIAN) (07/02/2016 5:35 AM) Component Value Range DAMIAN Screen SEE TITER <80 TITER Specimen Blood T SPOT TB (07/02/2016 5:35 AM) Component Value Range T Spot TB Negative The test result is Negative because the spot count in (Panel A minus Nil Control) and (Panel B minus Nil Control) is less than or equal to 4. This includes values less than zero.[id number]: Diagnosing or excluding tuberculosis disease, and assessing the probability of LTBI, requires a combination of epidemiological, historical, medical and diagnostic findings that should be taken into account when interpreting T-SPOT.TB test results. Refer to the most recent CDC guidance (http://www.cdc.gov/tb/publications/guidelines/def blanka.htm) for detailed recommendations on diagnosing TB infection (including disease) and selecting persons for testing. Guidelines set forth by the Centers of Disease Control and Prevention (CDC) recommend contacts of a person with tuberculosis (TB) disease who have a negative initial interferon-gamma release assay (IGRA) or TST within 8 weeks of exposure be retested 8 - 10 weeks after last exposure. [id number] Neg Control TB Spot Count 0 Panel A TB Spot Count 0 Panel B TB Spot Count 0 Pos Control TB Spot Count >20 US PELVIS NON OB COMP (07/01/2016 9:00 PM) Impressions 1.Normal size uterus with small intramural fibroid. 2.Satisfactory position of the IUD in the upper endometrial canal. 3.Small, 1.4 cm hypoechoic nodule in the left ovary.Imaging features are most suggestive of a solid nodule, such as a fibroma.However, it is possible this may represent a highly complicated hemorrhagic cyst.A repeat ultrasound is recommended in 8-12 weeks to evaluate for stability/resolution. 4.Normal appearance of the right ovary. Finalized by Annette Upton M.D. on 07/02/2016 7:54 AM. Dictated by Annette Upton M.D. on 07/02/2016 7:43 AM. Narrative Ultrasound of the pelvis Clinical Indication: Female, 46 years; abnormal uterine bleeding.LMP 2016, with bleeding x1 month.Previously periods have been regular. Patient denies pelvic pain and is not currently bleeding.. IUD placed approximately eight years ago. Technique: Multiple grayscale sonographic images were obtained of the pelvis transvaginally and transabdominally, with additional color Doppler and spectral Doppler acquisitions. Comparison: None Findings: The retroverted uterus is normal in size measuring 7.1 x 4.3 x 5.5 cm.There is a small intramural fibroid in the posterior lower uterine body measuring 1 cm in maximum diameter.. An intrauterine device is in place within the upper endometrial canal.The endometrium is uniformly thin.No endometrial masses or abnormal blood flow is seen. The right ovary is normal in size, measuring 2 x 1.7 x 1.8 cm.There is normal arterial blood flow in the ovary. No right adnexal masses are seen. The left ovary is normal in size, measuring 2.5 x 2 x 1.9 cm.There is a round, mildly hypoechoic nodule within the left ovary measuring 1.4 x 1.2 x 1.2 cm.This demonstrates no acoustic enhancement, and mildly heterogeneous echotexture.A small amount of blood flow is suggested on color Doppler imaging (image 41 of series 1A), though this was not confirmed by spectral Doppler.A small amount of blood flow is detected in the rim of normal ovarian parenchyma. There is minimal pelvic free fluid. Procedure Note Interface, Radiant Results - [facility] Jul 02, 2016 7:57 AM EMBROIDERY SPECIALIST Ultrasound of the pelvis Clinical Indication: Female, 46 years; abnormal uterine bleeding. LMP 05/11/2016 , with bleeding x1 month. Previously periods have been regular. Patient denies pelvic pain and is not currently bleeding. . IUD placed approximately eight years ago. Technique: Multiple grayscale sonographic images were obtained of the pelvis transvaginally and transabdominally, with additional color Doppler and spectral Doppler acquisitions. Comparison: None Findings: The retroverted uterus is normal in size measuring 7.1 x 4.3 x 5.5 cm. There is a small intramural fibroid in the posterior lower uterine body measuring 1 cm in maximum diameter.. An intrauterine device is in place within the upper endometrial canal. The endometrium is uniformly thin. No endometrial masses or abnormal blood flow is seen. The right ovary is normal in size, measuring 2 x 1.7 x 1.8 cm. There is normal arterial blood flow in the ovary. No right adnexal masses are seen. The left ovary is normal in size, measuring 2.5 x 2 x 1.9 cm. There is a round , mildly hypoechoic nodule within the left ovary measuring 1.4 x 1.2 x 1.2 cm. This demonstrates no acoustic enhancement, and mildly heterogeneous echotexture. A small amount of blood flow is suggested on color Doppler imaging (image 41 of series 1A), though this was not confirmed by spectral Doppler. A small amount of blood flow is detected in the rim of normal ovarian parenchyma. There is minimal pelvic free fluid. IMPRESSION 1. Normal size uterus with small intramural fibroid. 2. Satisfactory position of the IUD in the upper endometrial canal. 3. Small, 1.4 cm hypoechoic nodule in the left ovary. Imaging features are most suggestive of a solid nodule, such as a fibroma. However, it is possible this may represent a highly complicated hemorrhagic cyst. A repeat ultrasound is recommended in 8-12 weeks to evaluate for stability/resolution. 4. Normal appearance of the right ovary. Finalized by Annette Upton M.D. on 07/02/2016 7:54 AM. Dictated by Annette Upton M.D. on 07/02/2016 7:43 AM. US TRANSVAGINAL (07/01/2016 9:00 PM) Impressions 1.Normal size uterus with small intramural fibroid. 2.Satisfactory position of the IUD in the upper endometrial canal. 3.Small, 1.4 cm hypoechoic nodule in the left ovary.Imaging features are most suggestive of a solid nodule, such as a fibroma.However, it is possible this may represent a highly complicated hemorrhagic cyst.A repeat ultrasound is recommended in 8-12 weeks to evaluate for stability/resolution. 4.Normal appearance of the right ovary. Finalized by Annette Upton M.D. on 07/02/2016 7:54 AM. Dictated by Annette Upton M.D. on 07/02/2016 7:43 AM. Narrative Ultrasound of the pelvis Clinical Indication: Female, 46 years; abnormal uterine bleeding.LMP 2016, with bleeding x1 month.Previously periods have been regular. Patient denies pelvic pain and is not currently bleeding.. IUD placed approximately eight years ago. Technique: Multiple grayscale sonographic images were obtained of the pelvis transvaginally and transabdominally, with additional color Doppler and spectral Doppler acquisitions. Comparison: None Findings: The retroverted uterus is normal in size measuring 7.1 x 4.3 x 5.5 cm.There is a small intramural fibroid in the posterior lower uterine body measuring 1 cm in maximum diameter.. An intrauterine device is in place within the upper endometrial canal.The endometrium is uniformly thin.No endometrial masses or abnormal blood flow is seen. The right ovary is normal in size, measuring 2 x 1.7 x 1.8 cm.There is normal arterial blood flow in the ovary. No right adnexal masses are seen. The left ovary is normal in size, measuring 2.5 x 2 x 1.9 cm.There is a round, mildly hypoechoic nodule within the left ovary measuring 1.4 x 1.2 x 1.2 cm.This demonstrates no acoustic enhancement, and mildly heterogeneous echotexture.A small amount of blood flow is suggested on color Doppler imaging (image 41 of series 1A), though this was not confirmed by spectral Doppler.A small amount of blood flow is detected in the rim of normal ovarian parenchyma. There is minimal pelvic free fluid. Procedure Note Interface, Radiant Results - [facility] Jul 02, 2016 7:57 AM EMBROIDERY SPECIALIST Ultrasound of the pelvis Clinical Indication: Female, 46 years; abnormal uterine bleeding. LMP 05/11/2016 , with bleeding x1 month. Previously periods have been regular. Patient denies pelvic pain and is not currently bleeding. . IUD placed approximately eight years ago. Technique: Multiple grayscale sonographic images were obtained of the pelvis transvaginally and transabdominally, with additional color Doppler and spectral Doppler acquisitions. Comparison: None Findings: The retroverted uterus is normal in size measuring 7.1 x 4.3 x 5.5 cm. There is a small intramural fibroid in the posterior lower uterine body measuring 1 cm in maximum diameter.. An intrauterine device is in place within the upper endometrial canal. The endometrium is uniformly thin. No endometrial masses or abnormal blood flow is seen. The right ovary is normal in size, measuring 2 x 1.7 x 1.8 cm. There is normal arterial blood flow in the ovary. No right adnexal masses are seen. The left ovary is normal in size, measuring 2.5 x 2 x 1.9 cm. There is a round , mildly hypoechoic nodule within the left ovary measuring 1.4 x 1.2 x 1.2 cm. This demonstrates no acoustic enhancement, and mildly heterogeneous echotexture. A small amount of blood flow is suggested on color Doppler imaging (image 41 of series 1A), though this was not confirmed by spectral Doppler. A small amount of blood flow is detected in the rim of normal ovarian parenchyma. There is minimal pelvic free fluid. IMPRESSION 1. Normal size uterus with small intramural fibroid. 2. Satisfactory position of the IUD in the upper endometrial canal. 3. Small, 1.4 cm hypoechoic nodule in the left ovary. Imaging features are most suggestive of a solid nodule, such as a fibroma. However, it is possible this may represent a highly complicated hemorrhagic cyst. A repeat ultrasound is recommended in 8-12 weeks to evaluate for stability/resolution. 4. Normal appearance of the right ovary. Finalized by Annette Upton M.D. on 07/02/2016 7:54 AM. Dictated by Annette Upton M.D. on 07/02/2016 7:43 AM. LDH-LACTATE DEHYDROGENASE (07/01/2016 5:23 PM) Component Value Range Lactate Dehydrogenase 270 (H) 100-210 U/L Specimen Blood URIC ACID (07/01/2016 5:23 PM) Component Value Range Uric Acid 9.2 (H) 2.0-7.0 MG/DL Specimen Blood PTT (APTT) (07/01/2016 5:23 PM) Component Value Range APTT 29.5 24.0-40.0 SEC Specimen Blood RUBELLA AB IGG (07/01/2016 5:23 PM) Component Value Range Rubella IgG IMMUNE Specimen Blood HSV I/II GLYCOPROTEIN G AB (07/01/2016 5:23 PM) Component Value Range HSV Type 1 IgG POS (A) NEG-NEG HSV Type 2 IgG POS (A) NEG-NEG Specimen Blood HTLV-I/II AB (07/01/2016 5:23 PM) Component Value Range HTLV I/II Negative Reference range: Negative [facility], [address] [place] [address] Specimen Blood C REACTIVE PROTEIN (CRP) (07/01/2016 5:23 PM) Component Value Range C-Reactive Protein 0.24 <1.0 MG/DL Specimen Blood VARICELLA ZOSTER AB IGG (07/01/2016 5:23 PM) Component Value Range Varcella Zoster IgG POS Specimen Blood NISA RUDD PANEL(EBV) (07/01/2016 5:23 PM) Component Value Range EBV Capsid IgG POS EBV Nuclear Ag,Ab POS EBV Early Ag,Ab POS EBV Capsid IgM NEG Specimen Blood CMV AB IGG (07/01/2016 5:23 PM) Component Value Range CMV, IgG POS Specimen Blood CMV AB IGM (07/01/2016 5:23 PM) Component Value Range CMV, IgM NEG Specimen Blood TOXOPLASMA IGG (07/01/2016 5:23 PM) Component Value Range Toxoplasma IgG NEG Specimen Blood LIPASE (07/01/2016 5:23 PM) Component Value Range Lipase 14 11-82 U/L Specimen Blood AMYLASE (07/01/2016 5:23 PM) Component Value Range Amylase 25 24-100 U/L Specimen Blood SYPHILIS AB SCREEN (07/01/2016 5:23 PM) Component Value Range Syphilis AB, Total NEGComment: NEG-NEG Negative EIA: Negative results indicate no past or present syphilis infection. Early infection can not be excluded. Specimen Blood HIV AB SCREEN(1 AND 2) (07/01/2016 5:23 PM) Component Value Range HIV 1 and 2 AG AB Screen NEG NEG-NEG Specimen Blood HEPATITIS C AB (07/01/2016 5:23 PM) Component Value Range Anti HCV NEG Specimen Blood HEPATITIS B CORE AB TOT (IGG+IGM) (07/01/2016 5:23 PM) Component Value Range Anti HBc Total NEG Specimen Blood HEPATITIS B SURFACE AB (07/01/2016 5:23 PM) Component Value Range Anti HBs <2.5Comment: mIU/ml Hepatitis B Surface Antibody Reference Ranges >12.0 Positive 8.0-12.0 Equivocal <8.0 Negative Specimen Blood HEPATITIS B SURFACE AG (07/01/2016 5:23 PM) Component Value Range HBsAg NEG Specimen Blood HEPATITIS A IGM (07/01/2016 5:23 PM) Component Value Range Hepatitis A IgM NEG Specimen Blood HEPATITIS A IGG (07/01/2016 5:23 PM) Component Value Range Hepatitis A IGG NEG Note: Test type and methodology has changed. The [facility] lab has discontinued the test for Total Hep A Immunoglobulin. This test has been replaced with more specific testing. The tests for Hep A IgG and Hep A IgM are both now available and can be ordered. Specimen Blood 25-OH VITAMIN D (D2 + D3) (07/01/2016 5:23 PM) Component Value Range Vitamin D(25-OH)Total 8.4 (L) 30-80 NG/ML Specimen Blood TYPE & SCREEN (NOT CROSSMATCH ELIGIBLE) (07/01/2016 5:22 PM) Component Value Range ABO/RH(D) O POS Antibody Screen NEG Blood Component Type RED CELL GROUP Specimen Blood, venous - Blood MICROALBUMIN-URINE RANDOM (07/01/2016 4:30 PM) Component Value Range Microalbumin, Random <7.0 <19 MCG/ML Specimen Urine URINALYSIS, MICROSCOPIC (07/01/2016 4:30 PM) Component Value Range WBCs,UA 2-10 0-2 /HPF RBCs,UA NONE 0-3 /HPF MucousUA TRACE Squamous Epithelial Cells 2-5 0-5 Specimen Urine URINALYSIS DIPSTICK (07/01/2016 4:30 PM) Component Value Range Color,UA YELLOW Turbidity,UA CLEAR CLEAR-CLEAR Specific [place]-Urine 1.015 1.003-1.035 pH,UA 7.0 5.0-8.0 Protein,UA NEG NEG-NEG Glucose,UA NEG NEG-NEG Ketones,UA NEG NEG-NEG Bilirubin,UA NEG NEG-NEG Blood,UA NEG NEG-NEG Urobilinogen,UA NORMAL NORM-NORMAL Nitrite,UA NEG NEG-NEG Leukocytes,UA TRACE (A) NEG-NEG Urine Ascorbic Acid, UA NEG NEG-NEG Specimen Urine US ABDOMEN COMPLETE (07/01/2016 3:53 PM) Impressions 1. Small, 7 mm gallbladder polyp. This is most likely benign, though follow-up ultrasound is recommended in one year to ensure stability. 2. Otherwise normal ultrasound of the abdomen. Approved by Genet Doyle M.D. on 07/01/2016 5:10 PM By my electronic signature, I attest that I have personally reviewed the images for this examination and formulated the interpretations and opinions expressed in this report Finalized by Annette Upton M.D. on 07/01/2016 6:03 PM. Dictated by Genet Doyle M.D. on 07/01/2016 3:43 PM. Narrative Complete abdominal ultrasound: Clinical Indication: Heart transplant, ventricular assist device evaluation Technique: Multiple real-time grayscale sonographic images were obtained of the abdomen with additional color doppler acquisitions. Comparison: None Findings: The liver demonstrates homogeneous echotexture and measures 16.8 cm in length. No focal liver lesions are identified. No intrahepatic biliary ductal dilatation is identified. The common duct measures 0.3 cm. The gallbladder is normal in size and configuration. There is a small soft tissue nodule along the antedependent wall of the gallbladder neck measuring 0.7 cm. No internal blood flow detected.No gallbladder wall thickening or mobile gallstones.No pericholecystic fluid.A sonographic Acevedo sign was not elicited during the exam. Visualized portions of the pancreas are unremarkable. The spleen measures 10.4 cm. The kidneys are symmetric in size and in normal location. The right kidney measures 11.6 cm and the left kidney measures m.4 cm.No hydronephrosis. The partially distended urinary bladder is unremarkable. No abdominal or pelvic ascites is identified. Visualized portions of the proximal and mid aorta and upper IVC are unremarkable. Procedure Note Interface, Radiant Results - WedJul 01, 2016 6:06 PM EMBROIDERY SPECIALIST Complete abdominal ultrasound: Clinical Indication: Heart transplant, ventricular assist device evaluation Technique: Multiple real-time grayscale sonographic images were obtained of the abdomen with additional color doppler acquisitions. Comparison: None Findings: The liver demonstrates homogeneous echotexture and measures 16.8 cm in length. No focal liver lesions are identified. No intrahepatic biliary ductal dilatation is identified. The common duct measures 0.3 cm. The gallbladder is normal in size and configuration. There is a small soft tissue nodule along the antedependent wall of the gallbladder neck measuring 0.7 cm. No internal blood flow detected. No gallbladder wall thickening or mobile gallstones. No pericholecystic fluid. A sonographic Acevedo sign was not elicited during the exam. Visualized portions of the pancreas are unremarkable. The spleen measures 10.4 cm. The kidneys are symmetric in size and in normal location. The right kidney measures 11.6 cm and the left kidney measures m.4 cm. No hydronephrosis. The partially distended urinary bladder is unremarkable. No abdominal or pelvic ascites is identified. Visualized portions of the proximal and mid aorta and upper IVC are unremarkable. IMPRESSION 1. Small, 7 mm gallbladder polyp. This is most likely benign, though follow-up ultrasound is recommended in one year to ensure stability. 2. Otherwise normal ultrasound of the abdomen. Approved by Genet Doyle M.D. on 07/01/2016 5:10 PM By my electronic signature, I attest that I have personally reviewed the images for this examination and formulated the interpretations and opinions expressed in this report Finalized by Annette Upton M.D. on 07/01/2016 6:03 PM. Dictated by Genet Doyle M.D. on 07/01/2016 3:43 PM. 2-D + DOPPLER ECHOCARDIOGRAM (07/01/2016 3:01 PM) Component Value Range BSA 2.27 m2 ECHO EF 20 % Referring Provider Terrell Pennington ECHO PV DAIRY POWDER MIXER OPERATOR Nohemi HIGGINS LVIDD 6.7 3.9-5.3 cm LVIDS 6.3 cm IVS 0.9 0.6-0.9 cm PW 0.8 0.6-0.9 cm FS 5.97 28-44 % EF 10.15 % LA size 4.8 2.7-3.8 cm LA volume 134.0 22-52 mL Left Atrium Index 59.03 10-32 Right Ventricular Basal 4.1 cm (2.4-4.2) Diameter Right Atrial Area 20.4 cm2 (<=18) Right Ventricular Mid 3.1 cm (2.0-3.5) Diameter Right Atrial Major 5.3 cm (<=5.3) Dimension Right Ventricular Long 8.6 cm (5.6-8.6) Diameter Right Atrial Minor 4.2 cm (<=4.4) Dimension Right Ventricular Wall 0.4 cm (<=0.5) Sinus 3.1 2.1-3.5 cm AV peak velocity 1.3 m/s MV Comp diameter 2.0 cm MV Comp area 3.14 cm2 MV Comp VTI 18 cm MV Comp SV 56.52 cm3 MV Incomp diameter 3.4 cm MV Incomp area 9.07 cm2 MV Incomp VTI 12 cm MV Incomp SV 108.84 cm3 MV regurgitant volume 52.32 cc MV regurgitation fraction 48.07 % Vn Nyquist 0.32 m/s Radius 0.5 cm Mr max aaron 4.9 m/s MR PISA EROA 0.10 cm2 TV rest pulmonary artery 58 mmHg pressure E/A ratio 2.00 TDI e' 0.080 m/s E/E' ratio 15.00 MV Peak E Aaron PW 1.200 m/s MV Peak A Aaron 0.600 m/s Right Heart Systolic TDI 0.100 m/s S' Right Heart Systolic MPI 0.94 Right Heart Systolic ET 273.0 ms Right Heart Systolic TCO 530.0 ms Right Heart Systolic 2.1 cm Mmode TAPSE Right Heart Diastolic TV 0.500 m/s Peak E Velociaty Right Heart Diastolic TV 0.800 m/s Peak A Velociaty Right Heart Diastolic E 162.0 msec Deceleration Time Right Heart Diastolic E/A 0.63 Ratio Right Heart Diastolic 5.00 E/e' Ratio Narrative Severe left ventricular dilatation with severely depressed LV systolic function, EF ~ 20%. Wall motion abnormalities as noted below Severe diastolic dysfunction Normal right ventricular size and systolic function. TAPSE=2.1 cm.S' =10 cm/s Pacemaker leads in right-sided chambers Mild right atrial dilatation, severe left atrial dilatation Moderate mitral regurgitation, probably combined etiology secondary to LV dilation and a partial restricted posterior leaflet Estimated pulmonary artery systolic pressure 58 mmHg (~45% systemic pressures) No prior study is available for comparison. This study was read in conjunction with press cleaner, Dr. Sanya Lal.I have personally reviewed the study and co-formulated the interpretation expressed in this report. PV CAROTID ARTERY DUPLEX SCAN (07/01/2016 2:58 PM) Component Value Range Referring Provider Terrell Pennington RIGHT CCA PROX SYS 1.10 m/s RIGHT CCA PROX MARTINEZ 0.31 m/s RIGHT CCA DIST SYS 0.88 m/s RIGHT CCA DIST MARTINEZ 0.38 m/s RIGHT ICA PROX SYS 0.89 m/s RIGHT ICA PROX MARTINEZ 0.50 m/s RIGHT ICA MID SYS 1.53 m/s RIGHT ICA MID MARTINEZ 0.55 m/s RIGHT ICA DIST SYS 1.62 m/s RIGHT ICA DIST MARTINEZ 0.59 m/s RIGHT ECA SYS 0.90 m/s RIGHT VERTEBRAL SYS 0.61 m/s RIGHT SUBCLAVIAN SYS 1.04 m/s RIGHT ICA/CCA SYS 1.84 m/s LEFT CCA PROX SYS 0.89 m/s LEFT CCA PROX MARTINEZ 0.35 m/s LEFT CCA DIST SYS 0.87 m/s LEFT CCA DIST MARTINEZ 0.33 m/s LEFT ICA PROX SYS 1.32 m/s LEFT ICA PROX MARTINEZ 0.43 m/s LEFT ICA MID SYS 1.31 m/s LEFT ICA MID MARTINEZ 0.42 m/s LEFT ICA DIST SYS 1.05 m/s LEFT ICA DIST MARTINEZ 0.43 m/s LEFT ECA SYS 0.90 m/s LEFT VERTEBRAL SYS 0.67 m/s LEFT SUBCLAVIAN SYS 1.16 m/s LEFT ICA/CCA SYS 1.52 m/s Narrative Mild atheromatous plaque visualized in bilateral common and internal carotid arteries No hemodynamically significant (>50%) stenosis measured in the common carotid arteries bilaterally Elevated velocities and turbulent flow by color Doppler indicative of 50-79% (<70% by ratio criteria) stenosis of the bilateral internal carotid arteries. There is normal antegrade flow in bilateral vertebral arteries No evidence of proximal subclavian stenosis bilaterally No prior studies are available for comparison. This study was read in conjunction with press cleaner, Dr. Steve Fernando.I have personally reviewed the study and co-formulated the interpretation expressed in this report. PV ABIS REST ONLY (07/01/2016 1:57 PM) Component Value Range Referring Provider Terrell Pennington RIGHT ARM BP 119 mmHg LEFT ARM BP 121 mmHg RIGHT POSTERIOR TIBIAL 122 mmHg LEFT POSTERIOR TIBIAL 135 mmHg RIGHT ANTERIOR TIBIAL 112 mmHg LEFT ANTERIOR TIBIAL 136 mmHg RIGHT HELLEN 1.01 LEFT HELLEN 1.12 RIGHT TOE PRESSURE 105 mmHg LEFT TOE PRESSURE 100 mmHg RIGHT TBI 0.87 LEFT TBI 0.83 Narrative Normal ankle-brachial and toe-brachial indices bilaterally There are no prior studies for comparison. This study was read in conjunction with press cleaner, Dr. Steve Fernando.I have personally reviewed the study and co-formulated the interpretation expressed in this report. SURGICAL PATHOLOGY (07/01/2016 12:49 PM) Component Value Range PATHOLOGY REPORT [facility] [email or web address] Elvira Andrade MD, PhD, Director of Anatomic Pathology Department of Pathology and Laboratory Medicine [address] [place] [id number] Surgical Pathology Office: [phone] SURGICAL PATHOLOGY REPORT NAME: LORRI BIGGS SURG PATH #: [id number] MR #: [id number] SPECIMEN CLASS: SR BILLING #: [id number] ALT ID #: LOCATION: [facility] DATE OF PROCEDURE: 07/01/2016 AGE: 46 SEX: F DATE RECEIVED: 07/01/2016 : 1970 TIME RECEIVED: 12:49 PHYSICIAN: BRODY WINCHESTER DATE OF REPORT: 07/02/2016 COPY TO: LEON ARANGO MD DATE OF PRINTIN07/02/2016 ################################################## ###################### Final Diagnosis: A. Left arm: -- Nonspecific perivascular lymphoplasmacytic infiltrate with signs of excoriation Attestation: By this signature, I attest that I have personally formulated the final interpretation expressed in this report and that the above diagnosis is based upon my examination of the slides and/or other material indicated in this report. +++Electronically Signed Out By+++ gf/07/02/2016 Interpreted by: Param Lee MD, Attending Physician 07/02/2016 ################################################## ###################### Material Received: A: left arm History: A. 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 Labeled "left arm" is a 0.9 x 0.7 x 0.1 cm shave, bisected, all in A1. (jdn) jdn2/07/01/2016 FERRITIN (07/01/2016 4:44 AM) Component Value Range Ferritin 14 10-200 NG/ML Specimen Blood IRON + BINDING CAPACITY + %SAT (07/01/2016 4:44 AM) Component Value Range Iron 35 (L) 50-160 MCG/DL Iron Binding-TIBC 460 (H) 270-380 MCG/DL % Saturation 8 (L) 28-42 % Specimen Blood LIPID PROFILE (07/01/2016 4:44 AM) Component Value Range Cholesterol 132 <200 MG/DL Triglycerides 199 (H) <150 MG/DL HDL 31 (L) >40 MG/DL LDL 75 <100 MG/DL VLDL 40 MG/DL Non HDL Cholesterol 101Comment: MG/DL Calculated non-HDL Cholesterol (non-HDL-C) indirectly measures LDL-C, Lp(a), IDL-C, and VLDL-C. It is a surrogate marker for Apoprotein B. Non-HDL-C is a more accurate measure of atherogenic particle concentration than LDL-C in patients with hypertriglyceridemia (>200 mg/dL). This calculation is now recommended for evaluation and treatment of coronary heart disease according to the National Cholesterol Education Program Adult Treatment Protocol-III. See [place] et al. Am J. Cardiol. 2008, [id number]. The "goal" should be less than 130 mg/dL, but will vary according to risk factors. Specimen Blood TEST-URINE (06/30/2016 8:43 PM) Component Value Range Urine-HCG NEG Specific [place] 1.012 Specimen Urine PANOREX EXAM (06/30/2016 7:05 PM) Impressions Numerous large dental caries as described above with thin periapical lucencies surrounding the right mandibular second molar and left mandibular posterior- most molar likely representing gingivitis though an early abscess cannot be excluded. Approved by Alma Smalls M.D. on 07/01/2016 10:19 AM By my electronic signature, I attest that I have personally reviewed the images for this examination and formulated the interpretations and opinions expressed in this report Finalized by Mumtaz Pinto M.D. on 07/01/2016 5:17 PM. Dictated by Alma Smalls M.D. on 07/01/2016 8:10 AM. Narrative PANOREX EXAM CLINICAL HISTORY: Female, 46 years old. poor dentition. COMPARISON: None FINDINGS: A single Panorex view of the maxilla and mandible is submitted for interpretation. There is a small dental caries adjacent to the dental amalgam within the first left mandibular premolar. There are numerous other large dental caries involving the left maxillary central and lateral incisors and canine. Large dental caries involve the right maxillary lateral incisor and first molar and right mandibular molars. There is thin periapical lucencies surrounding the right mandibular second molar and left mandibular posterior- most molar likely representing gingivitis though an early abscess cannot be excluded. Procedure Note Interface, Radiant Results - WedJul 01, 2016 5:21 PM EMBROIDERY SPECIALIST PANOREX EXAM CLINICAL HISTORY: Female, 46 years old. poor dentition. COMPARISON: None FINDINGS: A single Panorex view of the maxilla and mandible is submitted for interpretation. There is a small dental caries adjacent to the dental amalgam within the first left mandibular premolar. There are numerous other large dental caries involving the left maxillary central and lateral incisors and canine. Large dental caries involve the right maxillary lateral incisor and first molar and right mandibular molars. There is thin periapical lucencies surrounding the right mandibular second molar and left mandibular posterior- most molar likely representing gingivitis though an early abscess cannot be excluded. IMPRESSION Numerous large dental caries as described above with thin periapical lucencies surrounding the right mandibular second molar and left mandibular posterior- most molar likely representing gingivitis though an early abscess cannot be excluded. Approved by Alma Smalls M.D. on 07/01/2016 10:19 AM By my electronic signature, I attest that I have personally reviewed the images for this examination and formulated the interpretations and opinions expressed in this report Finalized by Mumtaz Pinto M.D. on 07/01/2016 5:17 PM. Dictated by Alma Smalls M.D. on 07/01/2016 8:10 AM. CHEST 2 VIEWS (06/30/2016 7:05 PM) Impressions Mild findings of CHF and interstitial edema. Finalized by Annette Upton M.D. on 07/01/2016 8:42 AM. Dictated by Annette Upton M.D. on 07/01/2016 8:40 AM. Narrative CHEST 2 VIEWS CLINICAL INDICATION: Female, 46 years; dyspnea COMPARISON: CT chest 06/30/2016 FINDINGS: The heart is mildly enlarged with prominence of the central pulmonary veins. Triple lead cardiac conduction device is in place.Mild interstitial edema. No significant pleural effusion or pneumothorax. Procedure Note Interface, Radiant Results - WedJul 01, 2016 8:45 AM EMBROIDERY SPECIALIST CHEST 2 VIEWS CLINICAL INDICATION: Female, 46 years; dyspnea COMPARISON: CT chest 06/30/2016 FINDINGS: The heart is mildly enlarged with prominence of the central pulmonary veins. Triple lead cardiac conduction device is in place. Mild interstitial edema. No significant pleural effusion or pneumothorax. IMPRESSION Mild findings of CHF and interstitial edema. Finalized by Annette Upton M.D. on 07/01/2016 8:42 AM. Dictated by Annette Upton M.D. on 07/01/2016 8:[address] CHEST WO CONTRAST (06/30/2016 6:54 PM) Impressions 1. Moderate cardiomegaly with findings mild CHF. 2. At least moderate coronary artery calcification. 3. Mild bilateral axillary lymphadenopathy. This is most likely reactive in the absence of known malignancy. 4. Tiny left lower lobe pulmonary nodule most likely represents a small scar or granuloma. If there are no significant risk factors for pulmonary malignancy, no further follow-up of this nodule is required. Finalized by Joseph Brandt M.D. on 07/01/2016 8:34 AM. Dictated by Joseph Brandt M.D. on 07/01/2016 8:[address] Chest Clinical Indication: Dyspnea. Technique: Multiple contiguous axial CT images were obtained through the chest without IV contrast.Post processing coronal and sagittal reconstruction images were made from the axial images. Comparison: None Findings: Axilla, Mediastinum and Mitali: There is mild bilateral axillary lymphadenopathy. A field representative left axillary lymph node measures 2.2 x 2.1 ml on series 3, image 15. A few mildly prominent mediastinal lymph nodes are noted which are normal by size criteria. No hilar lymphadenopathy is identified, though evaluation of the mitali is limited without definite lymphadenopathy. Heart and Great Vessels: The heart size is moderately enlarged There is no pericardial effusion. 3-lead cardiac pacer is in place with right atrial, right ventricular and left ventricular leads. At least moderate coronary artery calcification is noted. Lungs and Pleura: There is mild pulmonary venous congestion and interstitial edema. Bibasilar atelectasis and/or scarring is noted. A tiny nodule seen in the left lower lobe measuring 0.2 cm on series 3, image 50. No pleural effusions. Chest Wall and Osseous Structures: No destructive osseous lesions. Visualized Upper Abdomen: No significant upper abdominal abnormalities are identified. Procedure Note Interface, Radiant Results - WedJul 01, 2016 8:[address] Chest Clinical Indication: Dyspnea. Technique: Multiple contiguous axial CT images were obtained through the chest without IV contrast. Post processing coronal and sagittal reconstruction images were made from the axial images. Comparison: None Findings: Axilla, Mediastinum and Mitali: There is mild bilateral axillary lymphadenopathy. A field representative left axillary lymph node measures 2.2 x 2.1 ml on series 3, image 15. A few mildly prominent mediastinal lymph nodes are noted which are normal by size criteria. No hilar lymphadenopathy is identified, though evaluation of the mitali is limited without definite lymphadenopathy. Heart and Great Vessels: The heart size is moderately enlarged There is no pericardial effusion. 3-lead cardiac pacer is in place with right atrial, right ventricular and left ventricular leads. At least moderate coronary artery calcification is noted. Lungs and Pleura: There is mild pulmonary venous congestion and interstitial edema. Bibasilar atelectasis and/or scarring is noted. A tiny nodule seen in the left lower lobe measuring 0.2 cm on series 3, image 50. No pleural effusions. Chest Wall and Osseous Structures: No destructive osseous lesions. Visualized Upper Abdomen: No significant upper abdominal abnormalities are identified. IMPRESSION 1. Moderate cardiomegaly with findings mild CHF. 2. At least moderate coronary artery calcification. 3. Mild bilateral axillary lymphadenopathy. This is most likely reactive in the absence of known malignancy. 4. Tiny left lower lobe pulmonary nodule most likely represents a small scar or granuloma. If there are no significant risk factors for pulmonary malignancy , no further follow-up of this nodule is required. Finalized by Joseph Brandt M.D. on 07/01/2016 8:34 AM. Dictated by Joseph Brandt M.D. on 07/01/2016 8:28 AM. HEMOGLOBIN A1C (06/30/2016 6:09 PM) Component Value Range Hemoglobin A1C 5.5Comment: 4.0-6.0 % The ADA recommends that most patients with type 1 and type 2 diabetes maintain an A1c level <7%. Specimen Blood TROPONIN-I (06/30/2016 2:54 PM) Component Value Range Troponin-I 0.01 0.0-0.05 NG/ML THYROID STIMULATING HORMONE-TSH (06/30/2016 2:54 PM) Component Value Range TSH 1.587 0.35-5.00 MCU/ML COMPREHENSIVE METABOLIC PANEL (06/30/2016 2:54 PM) Component Value Range Sodium 137 137-147 MMOL/L Potassium 4.1 3.5-5.1 MMOL/L Chloride 103 98-110 MMOL/L Glucose 80 70-100 MG/DL Blood Urea Nitrogen 13 7-25 MG/DL Creatinine 1.11 (H) 0.4-1.00 MG/DL Calcium 9.4 8.5-10.6 MG/DL Total Protein 8.0 6.0-8.0 G/DL Total Bilirubin 0.4 0.3-1.2 MG/DL Albumin 3.6 3.5-5.0 G/DL Alk Phosphatase 119 (H) 25-110 U/L AST (SGOT) 12 7-40 U/L CO2 28 21-30 MMOL/L ALT (SGPT) 12 7-56 U/L Anion Gap 6 3-12 eGFR Non 53 (L)Comment: >60 mL/min The eGFR is not validated for use in drug dosing adjustments. Continue to use estimated creatinine clearance per dosing reference text. Please contact the Clinical Pharmacist for questions. eGFR >60Comment: >60 mL/min The eGFR is not validated for use in drug dosing adjustments. Continue to use estimated creatinine clearance per dosing reference text. Please contact the Clinical Pharmacist for questions. BNP (B-TYPE NATRIURETIC PEPTI) (06/30/2016 2:54 PM)Only the most recent of 2 results within the time period is included. Component Value Range B Type Natriuretic 321.0 (H) 0-100 PG/ML Peptide Specimen Blood DEVICE EVALUATION - ICD (06/30/2016 1:31 PM) Component Value Range Device Implanted By Dr Damian simpson [facility] EP Device Followed by Roman in [facility] Name RENAY/EOL Indicator 2.73V Generator Line Repairer Medtronic Generator Model # Viva XT CRTD [id number] Generator Serial # [id number] Generator Implnat Date 10/08/15 Atrial Lead Line Repairer Medtronic Atrial Lead Model # 5076 Atrial Lead Serial # [id number] Atrial Lead Implant Date 04/15/10 RV Lead Line Repairer Medtronic RV Lead Model # 6947 RV Lead Serial # [id number] RV Lead Implant Date 04/15/10 LV Lead Line Repairer Medtronic LV Lead Model # 4196 LV Lead Serial # [id number] LV Lead Implant Date 04/15/10 Pacemaker Dependant No Device [place] Carelink Express Transmitter Compatible Device Type EDUCATION AND OUTREACH COORDINATOR-D EP Device Followed By MAC Date of Last Programming 06/30/16 Date of Last 06/30/16 Interrogation Device Mode DDD Lower Rate Limit 50 Upper Rate Limit 130 Sensor Rate Limit 120 Pace AV Delay 150 Sense AV Delay 130 VT Monitor OFF VT Detect Rate (bpm) 111bpm (CL 540ms) VT Detect Rate Tx ATP ONLY FVT Detect Rate (bpm) 188 FVT Detect Rate Tx ATP x1, Shock VF Detect Rate (bpm) 214bpm VF Detect Rate Tx ATP, Shock Mode Switch (bpm) 150 Mode Switch Status Off Date of Last ICM 06/30/16 Evaluation Enrollment Date req trsfr 05/05/16 Remote Monitoring? Yes HF Patient No # Mode S. Events 0 # High AT/AF Evts 0 Time in AT/AF 0% # of VT Events 0 # of FVT Events 0 # of VF Events 0 # of NSVT Events 3 (none since last remote) Single PVSc 0.4hr PVC runs <0.1/hr BiVP% 95.4% Battery Voltage 3.01 Estimated Longevity 8.2-9.1y Charge Time 4s on 04/04/16 Defib Lead Imped 41 SVC LEAD IMPED 52 A Sense mv 4.3 A Lead ohms 342 A Capture V 0.75 A Capture ms 0.4 Ao Voltage 1.5 AO Pulse Width 0.4 RV Sense mv 15.6 RV Lead ohms 437 RV Capture V 1.0 RV Capture ms 0.4 RV Voltage 1.5 RV Pulse Width 0.4 LV Lead ohms 722 EP LV Capture V 1.25 LV Capture ms 1.0 LV Voltage 2.0 LV Pulse Width 1.0 ICM Evaluation Yes Initial Rhythm 66bpm Underlying Rhythm NSR 66bpm -VS% 1.8 -INSTRUMENTAL MUSICIAN% 98.2 -VS% <0.1 AP-INSTRUMENTAL MUSICIAN% <0.1 Initial Rhythm -INSTRUMENTAL MUSICIAN Device Function WNL Yes Device Reprogram No Programming? Yes Interrogation? Yes Narrative CRTD programming + ICM.Device function appears normal.Pt is very SOB and says she has been since VT ablation. Events noted: Atrial:none Ventricular:None since last remote that showed 3 NSVT on 06/01/16 V-sensed:None since last remote that showed 18 with last being >18hrs on 06/21/16 with a peak rate of 130bpm.VCL with markers is variable but it does look likely to be VT (which is confirmed on Presenting rhythm on 06/21/16remote). I think this wasn't treated because it needs 16 consecutive intervals at 540ms, and it appears she pretty regularly has slower beats to 560ms. Optivol shows possible fluid accumulation and/or possible early heart failure. Changes made to programming:None.I did do a wavelet update today. Remote monitoring is in place.Will continue to monitor. Report to Dr. Moody in clinic. [06/30/2016 1:48:44 PM - EMIL AGUAYO] DEVICE EVALUATION - REMOTE ICD (05/22/2016 8:40 AM) Component Value Range Device Implanted By Dr Damian simpson [facility] EP Device Followed by Roman in [facility] Name RENAY/EOL Indicator 2.73V Generator Line Repairer Medtronic Generator Model # Viva XT CRTD [id number] Generator Serial # [id number] Generator Implnat Date 10/08/15 Atrial Lead Line Repairer Medtronic Atrial Lead Model # 5076 Atrial Lead Serial # [id number] Atrial Lead Implant Date 04/15/10 RV Lead Line Repairer Medtronic RV Lead Model # 6947 RV Lead Serial # [id number] RV Lead Implant Date 04/15/10 LV Lead Line Repairer Medtronic LV Lead Model # 4196 LV Lead Serial # [id number] LV Lead Implant Date 04/15/10 Pacemaker Dependant No Device [place] Carelink Express Transmitter Compatible Device Type EDUCATION AND OUTREACH COORDINATOR-D EP Device Followed By Other Date of [...] Remote Monitoring? Yes HF Patient No Narrative Current Monitoring Period: 05/22/16 through 08/19/16 Initial Carelink Tranmission - NO CHARGE [07/15/2016 9:41:11 AM - LIZABETH LAND] Carelink transmission received on 07/11/16.Device function appears normal. 5 NSVT events and 1 labeled SVT event that is coinciding with one of the NSVT episodes, all EGM's show true VT, A-rates: 66-93 bpm, V-rates: 115-151 bpm. 13 VS episodes, markers true VT, V-rates at 103-154 bpm. OptiVol has returned to baseline after peaking 165 with the thoracic impedance above the reference line. Please see scanned data sheets for further review as needed.I will route to DJ to sign who follows the patient. [06/25/2016 1:30:25 PM - LIZABETH LAND] Carelink transmission received on 06/22/16.Device function appears normal. Events noted since 05/17/16: Atrial:None. Ventricular:[address] on 06/01/16 lasting 1-3 seconds, EGM's show sudden onset and termination of 1:1 retrograde conduction, rates: 117-120 bpm. V-sensed:17 VS episode, markers also show 1:1 retrograde conduction, rates: 111-118 bpm.. OptiVol rising currently with the thoracic impedance trend below the reference line suggesting possible fluid accumulation.Will flag aligned RN to follow up. Please see scanned data sheets for further review as needed.Pt is scheduled to follow up on 06/30/16 with DJL at the office. [05/22/2016 8:41:16 AM - LIZABETH LAND] Scheduled Carelink transmission received. Device function appears normal. Events noted since 05/14/16: Atrial: None. Ventricular: None. V-sensed: None. OptiVol and thoracic impedance trends currently do not suggest fluid overload. Please see scanned data for further review as needed. Pt is scheduled to follow up on 05/26/16 with DJL at the office.I will route to BATTERY MECHANIC in the EP lab to co-sign. ECG UNCONFIRMED-SCAN (05/13/2016 2:00 PM) Narrative Ordered by an unspecified provider. TELEMETRY STRIPS-SCAN (05/13/2016 11:33 AM) Narrative Ordered by an unspecified provider. ECG-SCAN (05/13/2016 9:21 AM) Narrative Ordered by an unspecified provider. ECG-SCAN (05/13/2016 9:21 AM) Narrative Ordered by an unspecified provider.
--- OUTSIDE RECORDS SUMMARY | 2016-08-06 21:22 | XMS REPORT | Continuity of Care Document ---
Author Author [facility] Organization [facility] Address Unknown Phone Unavailable Care Team Providers Care Diet Assistant Name Role Phone Terrell Pennington PCP [phone] Source Comments Some departments are not documenting in the electronic medical record. If you do not see the information that you expected, contact Release of Information in the Health Information Management department at [phone] for further assistance in locating additional records.[facility] Active Allergies and Adverse Reactions [...] cardioverter-defibrillator) in place 2015 Overview: 10/08/15 Medtronic [id number] SN: [id number] (Dr. Salgado) L ast Assessment & Plan: Device was checked today and demonstrated normal function. See device check and cardiovascular studies for further details. Coronary atherosclerosis of [place] coronary artery Overview: LUTHER to proximal LAD in 2005 at [facility] LUTHER, Integrity to mid RCA in 2011 at [facility] 07/16/15 Left heart cath ([facility]): Occluded RCA with collateral flow. Mild [...] replacement therapy. Ischemic cardiomyopathy Overview: 07/14/15 Echo ([facility]): LV systolic function moderate to severely reduced. EF 25-30%. Inferior wall akinesis. Mild MR. LV severely dilated. LA mildly dilated. History of OR (myocardial infarction) Paroxysmal atrial fibrillation (HCC) Last [...] Specialty Providers Description 08/03/2016 Telephone Cardiology Carolina Adorno RN Procedure - cancel cath 08/03/2016 Surgery Cardiology Harrison Rosado MD Percutaneous Coronary Intervention Left Anterior Descending Artery 08/03/2016 Hospital Cardiology Harrison Rosado MD Encounter 07/24/2016 Documentation Cardiology Kyle Ponce RN Precertification - Approval for LVCORS through [employer] 07/23/2016 Telephone Cardiology Birgit Krishna RN Procedure - PCI - LAD ([facility] - 08/03) 07/22/2016 Office Visit Cardiology Lillie Alejo MD No Show 07/17/2016 Telephone Cardiology Aracelis Godwin RN Other - Update on patient case meeting 07/15/2016 Documentation Dermatology Brody Winchester MD 07/14/2016 Office Visit Cardiology Yoan Aceves MBBS Cardiac Eval - hospital f/u 07/14/2016 Telephone Cardiology Yana Rosenthal, PHARMD Medication Problem - Tretinoin PA 07/10/2016 [facility] Cardiology Josh Iqbal MD Encounter 07/09/2016 Surgery Cardiology Cath, Physician Coronary Angiography 07/08/2016 Documentation Transplant Surgery Chika Cortez RN 07/07/2016 [facility] Cardiology Shavonne Espana APRN Encounter 07/07/2016 [...] Genet Rodriguez RN Financial/ Insurance Questions 06/30/2016 [facility] Cyndi Edouard MD Acute on chronic combined - Encounter Paddy Aceves MD systolic and diastolic 07/10/2016 Yoan Aceves MBBS heart failure (HCC) Harrison Rosado MD 06/30/2016 [facility] Cardiology Candice Moody, Encounter MD 06/30/2016 [facility] Cardiology Candice Moody, Encounter MD 06/30/2016 [...] Cardiology Alisha Merino MD Medication Refill 05/22/2016 [facility] Cardiology Candice Moody, Encounter MD 05/22/2016 Ancillary Cardiology Candice Moody, ICD ( implantable Orders cardioverter-defibrillato r), biventricular, in situ (Primary Dx) 05/20/2016 Telephone Cardiology Kianna Kent LPN Medication Question - Xarelto 05/12/2016 Refill Cardiology Myrtle Dixon, propulsion motor and generator repairer Refill 05/07/2016 [facility] Cardiothoracic Surgery Candice Moody, Sustained ventricular [...] Taken Blood Pressure 108/61 07/14/2016 3:40 PM TOUR SALES REPRESENTATIVE Pulse 78 07/14/2016 3:40 PM TOUR SALES REPRESENTATIVE Temperature 36.3 C (97.4 F) 07/10/2016 2:40 PM TOUR SALES REPRESENTATIVE Respiratory Rate - - Height 1.702 m (5' 7") 07/14/2016 3:40 PM TOUR SALES REPRESENTATIVE Weight 104.509 kg (230 lb 6.4 07/14/2016 3:40 PM TOUR SALES REPRESENTATIVE oz) Body Mass Index 36.08 07/14/2016 3:40 PM TOUR SALES REPRESENTATIVE Oxygen Saturation 97% 07/14/2016 3:40 PM TOUR SALES REPRESENTATIVE Plan of Care Health Maintenance Due Date Last Done Comments Physical (Comprehensive) 02/20/1976 Exam Cervical Cancer Screening 1990 Breast Cancer Screening 2009 Influenza Vaccine 01/08/2017 Tetanus Vaccine 07/10/2026 07/10/2016, 07/04/2016 Pertussis Vaccine Completed 07/10/2016, 07/04/2016 Procedures from Last 3 Months Procedure Name Priority Date/Time Associated Diagnosis Comments ECG-SCAN 07/16/2016 Results for this 8:47 AM TOUR SALES REPRESENTATIVE procedure are in the results section. ECG-SCAN 07/14/2016 Results for this 2:02 PM TOUR SALES REPRESENTATIVE procedure are in the results section. TELEMETRY STRIPS-SCAN 07/13/2016 Results for this 2:26 PM TOUR SALES REPRESENTATIVE procedure are in the results section. SLEEP STUDY-SCAN 07/13/2016 Results for this 2:06 PM TOUR SALES REPRESENTATIVE procedure are in the results section. PROCEDURE RECORD-SCAN 07/13/2016 Results for this 12:06 PM TOUR SALES REPRESENTATIVE procedure are in the results section. PROCEDURE RECORD-SCAN 07/13/2016 Results for this 12:05 PM TOUR SALES REPRESENTATIVE procedure are in the results section. CONSULT IV THERAPY TEAM Routine 07/08/2016 10:50 PM TOUR SALES REPRESENTATIVE EXTRACTION MULTIPLE TEETH 07/07/2016 Dental caries extending 5:45 PM TOUR SALES REPRESENTATIVE into pulp SLEEP STUDY-SCAN 07/07/2016 Results for this 2:47 PM TOUR SALES REPRESENTATIVE procedure are in the results section. CONSULT IV THERAPY TEAM Routine 07/05/2016 9:32 AM TOUR SALES REPRESENTATIVE CONSULT IV THERAPY TEAM Routine 07/01/2016 5:40 PM TOUR SALES REPRESENTATIVE ECG UNCONFIRMED-SCAN 05/13/2016 Results for this 2:00 PM TOUR SALES REPRESENTATIVE procedure are in the results section. TELEMETRY STRIPS-SCAN 05/13/2016 Results for this 11:33 AM TOUR SALES REPRESENTATIVE procedure are in the results section. ECG-SCAN 05/13/2016 Results for this 9:21 AM TOUR SALES REPRESENTATIVE procedure are in the results section. ECG-SCAN 05/13/2016 Results for this 9:21 AM TOUR SALES REPRESENTATIVE procedure are in the results section. Results [...] Note Bridget Jul 09, 2016 4:24 PM TOUR SALES REPRESENTATIVE [facility] at [facility] CARDIAC CATHETERIZATION REPORT Page 2 LORRI Benavidez : 1970 #: [id number] KU MR #/Billing ID #: [id number] / [id number] DATE: 07/09/2016 DIE ENGRAVER: Harrison Rosado MD DICTATING PROVIDER: Harrison Rosado [...] mL of 1% lidocaine and advanced a 7-Egyptian arterial sheath. Selective left and right coronary cineangiograms were performed with diagnostic coronary catheters to stage the intervention. We are planning intervention of the RCA. Heparin was then used to maintain a therapeutic ACT. A 7-Egyptian AR1 guide was advanced to the ostium [...] obtuse marginal system distally, which filled via pbjj-cg-dvdg collaterals. In addition, there were left-to- right collaterals supplying the posterior descending and posterolateral vessels. The [place] right coronary was visualized with the JR4 catheter. It was noted to be occluded at the midportion. There was a diffuse 40% to 50% stenosis proximally. ASSESSMENT: Severe coronary atherosclerosis manifested by the followin. Tandem lesions in the LAD with a 60% mid and 70% mid distal stenosis with a resting FFR of 0.74. 2. Occluded mid circumflex with fwbm-wc-lezr collaterals supplying the distal obtuse marginal branch. 3. A 95% 1st high obtuse marginal stenosis in the proximal midportion. 4. Occluded mid RCA with krry-hj-nhkwh collateral supplying the posterior descending posterolateral branch. 5. Elevated left ventricular end-diastolic pressures. PLAN: Will re-discuss the possibility of surgical revascularization versus continued percutaneous approach. MD BEVERLY Bell/Narinder /[id number] p cc: - GENERAL PALLIATIVE CARE - CYNDI EDOUARD MD PV VEIN MAP ARTERIAL BYPASS GRAFT [...] This study was read in conjunction with digital advertising analyst, Dr. Steve Fernando.I have personally reviewed the [...] % LV volume 352 mL Study Number [id number] Nuclear Cardiology In aggregate the current study is high risk in Mortality Risk regards to predicted annual cardiovascular mortality rate. Narrative Nuclear Report [facility] Cardiology Division of Nuclear Cardiac Imaging Consultation Report EXAMINATION:Resting and delayed (4 hour and/or 24 hour) [id number] Chloride single photon emission computed tomography (SPECT) for myocardial perfusion and viability imaging. Date of Study: 07/07/16 Study#: [id number] LOUIE LOUIE Billing ID:[id number] Referring Physician: Requested by: Shavonne Espana APRN INDICATIONS FOR STUDY (HISTORY):This is a 46-year-old female with a history of ischemic cardiomyopathy.This study is to look for evidence of myocardial viability. PROCEDURAL DETAILS:At rest approximately 3.04 mCi of [id number] Chloride was injected intravenously.Planar and gated tomographic [...] MD JOSÉ ANTONIO Valencia/BHARGAV DT:07/08/2016 12:25:56 Job #:[id number] GRAM STAIN (07/05/2016 2:25 PM) Component Value [...] <1.2 Reference range: <4.0 (Negative) Unit: U/mL [facility] CELIAC DISEASE PANEL (07/03/2016 4:59 [...] % FEV1-Pre 1.75 L FEV1-%Pred-Pre 55 % KEE8414-Wmd 1.60 L/sec LPA8808-%Pred-Pre 52 % VCSVC-Pre 2.13 L ICSVC-Pre 1.54 [...] 6.10 ml/min/mmHg/L DLVA-#SD -1.372 ml/min/mmHg/L Narrative Call [phone] to schedule. Clinical history:->Heart Transplant/VAD Evaluation Is [...] Range Creatinine, Random 38 MG/DL Creat/24 HR 6567 293-1886 MG/24 HRS Specimen Urine TOTAL PROTEIN-URINE 24 [...] to 4. This includes values less than zero.A1h3mDzss: Diagnosing or excluding tuberculosis disease, and assessing [...] fluid. Procedure Note Interface, Radiant Results - [facility] Jul 02, 2016 7:57 AM TOUR SALES REPRESENTATIVE Ultrasound of the pelvis Clinical Indication: Female, [...] - Bridget Jul 02, 2016 7:57 AM TOUR SALES REPRESENTATIVE Ultrasound of the pelvis Clinical Indication: Female, [...] HTLV I/II Negative Reference range: Negative [employer], [address] [place] [address] Specimen Blood C REACTIVE PROTEIN (CRP) (07/01/2016 [...] Test type and methodology has changed. The [facility] lab has discontinued the test for [...] Range Color,UA YELLOW Turbidity,UA CLEAR CLEAR-CLEAR Specific [place]-Urine 1.015 1.003-1.035 pH,UA 7.0 5.0-8.0 Protein,UA NEG [...] Results - WedJul 01, 2016 6:06 PM TOUR SALES REPRESENTATIVE Complete abdominal ultrasound: Clinical Indication: Heart transplant, [...] % Referring Provider Terrell Pennington ECHO PV PASSENGER COACH DRIVER Nohemi HIGGINS LVIDD 6.7 3.9-5.3 cm LVIDS [...] This study was read in conjunction with digital advertising analyst, Dr. Sanya Lal.I have personally reviewed the [...] This study was read in conjunction with digital advertising analyst, Dr. Steve Fernando.I have personally reviewed the [...] This study was read in conjunction with digital advertising analyst, Dr. Steve Fernando.I have personally reviewed the study and co-formulated the interpretation expressed in this report. SURGICAL PATHOLOGY (07/01/2016 12:49 PM) Component Value Range PATHOLOGY REPORT [facility] [email or web address] Elvira Andrade MD, PhD, Director of Anatomic Pathology Department of Pathology and Laboratory Medicine [address] [place] [id number] Surgical Pathology Office: [phone] SURGICAL PATHOLOGY REPORT NAME: LORRI BIGGS SURG PATH #: [id number] MR #: [id number] SPECIMEN CLASS: SR BILLING #: [id number] ALT ID #: LOCATION: [facility] DATE OF PROCEDURE: 07/01/2016 AGE: 46 SEX: [...] Espana et al. Am J. Cardiol. 2008, [id number]:[id number]. The "goal" should be less than 130 mg/dL, but will vary according to risk factors. Specimen Blood TEST-URINE (06/30/2016 8:43 PM) Component Value Range Urine-HCG NEG Specific [place] 1.012 Specimen Urine PANOREX EXAM (06/30/2016 7:05 [...] Results - WedJul 01, 2016 5:21 PM TOUR SALES REPRESENTATIVE PANOREX EXAM CLINICAL HISTORY: Female, 46 years [...] Results - WedJul 01, 2016 8:45 AM TOUR SALES REPRESENTATIVE CHEST 2 VIEWS CLINICAL INDICATION: Female, 46 [...] There is mild bilateral axillary lymphadenopathy. A merchandising representative left axillary lymph node measures 2.2 [...] Results - WedJul 01, 2016 8:37 AM TOUR SALES REPRESENTATIVE CT Chest Clinical Indication: Dyspnea. Technique: Multiple contiguous axial CT images were obtained through the chest without IV contrast. Post processing coronal and sagittal reconstruction images were made from the axial images. Comparison: None Findings: Axilla, Mediastinum and Mitali: There is mild bilateral axillary lymphadenopathy. A merchandising representative left axillary lymph node measures 2.2 [...] Range Device Implanted By Dr Damian simpson [facility] EP Device Followed by Roman in [facility] Name RENAY/EOL Indicator 2.73V Generator Petroleum Engineering Professor [employer]tronic Generator Model # Viva XT CRTD [id number] Generator Serial # [id number] Generator Implnat Date 10/08/15 Atrial Lead Petroleum Engineering Professor [employer] Atrial Lead Model # 5076 Atrial Lead Serial # [id number] Atrial Lead Implant Date 04/15/10 RV Lead Petroleum Engineering Professor Medtronic RV Lead Model # 6947 RV Lead Serial # [id number] RV Lead Implant Date 04/15/10 LV Lead Petroleum Engineering Professor [employer]tronic LV Lead Model # 4196 LV Lead Serial # [id number] LV Lead Implant Date 04/15/10 Pacemaker Dependant No Device [employer] Carelink Express Transmitter Compatible Device Type POLICY AND PLANNING MANAGER-D EP Device Followed By MAC Date of [...] 66bpm Underlying Rhythm NSR 66bpm -VS% 1.8 -NIB ADJUSTER% 98.2 -VS% <0.1 AP-NIB ADJUSTER% <0.1 Initial Rhythm -NIB ADJUSTER Device Function WNL Yes Device Reprogram No [...] Range Device Implanted By Dr Damian simpson [facility] EP Device Followed by Roman in [facility] Name RENAY/EOL Indicator 2.73V Generator Petroleum Engineering Professor Medtronic Generator Model # Viva XT CRTD [id number] Generator Serial # [id number] Generator Implnat Date 10/08/15 Atrial Lead Petroleum Engineering Professor Medtronic Atrial Lead Model # 5076 Atrial Lead Serial # [id number] Atrial Lead Implant Date 04/15/10 RV Lead Petroleum Engineering Professor Medtronic RV Lead Model # 6947 RV Lead Serial # [id number] RV Lead Implant Date 04/15/10 LV Lead Petroleum Engineering Professor Medtronic LV Lead Model # 4196 LV Lead Serial # [id number] LV Lead Implant Date 04/15/10 Pacemaker Dependant No Device Gardiner Carelink Express Transmitter Compatible Device Type POLICY AND PLANNING MANAGER-D EP Device Followed By Other Date [...] DJL at the office.I will route to SPORTS THERAPIST in the EP lab to co-sign. ECG UNCONFIRMED-SCAN (05/13/2016 2:00 PM) Narrative Ordered by an unspecified provider. TELEMETRY STRIPS-SCAN (05/13/2016 11:33 AM) Narrative Ordered by an unspecified provider. ECG-SCAN (05/13/2016 9:21 AM) Narrative Ordered by an unspecified provider. ECG-SCAN (05/13/2016 9:21 AM) Narrative Ordered by an unspecified provider.
[2016-08-06] MEDS ORDERED: SODIUM CHLORIDE FLUSH 10 ML SYR IV PRN (21:25)
[2016-08-06] MEDS ORDERED: SODIUM CHLORIDE FLUSH 3 ML SYR IV ONE (21:25)
--- NOTE | 2016-08-06 21:45 | NUR ---
Used [employer] Interrogation machine to send to the [employer] rep to see pt's rythym, Rep called back and spoke with Dr. Hollis giving him a report of pt's pacemaker interrogation that was sent.
[2016-08-06 21:50] LABS: BASOPHILS % (AUTO) 1 % (0-2); EOSINOPHILS # (AUTO) 0.2 10^3uL; EOSINOPHILS % (AUTO) 3 % (0-4); LYMPHOCYTES # (AUTO) 1.9 X10^3; MEAN CORPUSCULAR HEMOGLOBIN 28.9 PG (26.0-34.0); MEAN CORPUSCULAR HGB CONC 32.5 g/dL (31.0-37.0); MEAN CORPUSCULAR VOLUME 89 FL (80-100); MEAN PLATELET VOLUME 10.4 FL (6.0-9.5); MONOCYTES # (AUTO) 0.7 X10^3; MONOCYTES % (AUTO) 12 % (3-11); NEUTROPHILS # (AUTO) 2.6 X10^3; NEUTROPHILS % (AUTO) 49 % (51-67); PLATELET COUNT 233 10^3uL (150-450); WHITE BLOOD COUNT 5.37 10^3uL (4.0-11.0)
[2016-08-06] MEDS ORDERED: TICA90TA PO (21:57)
[2016-08-06] MEDS ORDERED: NFLOSA25TA PO (21:57)
[2016-08-06] MEDS ORDERED: MAGN64TA8 PO (21:57)
[2016-08-06] MEDS ORDERED: SPIR25TA PO (21:57)
--- NOTE | 2016-08-06 22:01 | Diagnostic Imaging Report ---
INDICATION: Chest pain. COMPARISON: 05/17/2016. FINDINGS: Stable cardiomegaly with left pectoral transvenous pacemaker/ICD. No pleural effusion or pneumothorax. No focal pulmonic consolidation. Please note posterior lower lobes are poorly evaluated by portable radiography. Normal pulmonary vasculature. IMPRESSION: 1. Stable examination compared to 05/27/16. No acute cardiopulmonary process. Dictated by: Dictated on workstation # [id number]
[2016-08-06 22:02] LABS: ALKALINE PHOSPHATASE 128 U/L (38-126); ANION GAP 13.4 MEQ/L (3-15); BUN/CREATININE RATIO 13 (10-20); CALCULATED IONIZED CALCIUM 3.8 mg/dL (3.8-4.6); CREATINE KINASE 25 U/L (30-135); MAGNESIUM* 1.7 mg/dL (1.6-2.3)
[2016-08-06 23:01] VITALS: BP 110/62
== END 2016-08-06 23:04 | disposition home or self-care (01) ==
LOC: ED 21:17
DX: R00.2 Palpitations (principal); Z95.0 Presence of cardiac pacemaker; Z72.0 Tobacco use; I10 Essential (primary) hypertension; I21.4 Non-ST elevation (NSTEMI) myocardial infarction
CPT/HCPCS: 36415; 71010; 80053; 82550; 82553; 83735; 83880; 84443; 84484; 85025; 85610; 86140; 93005; 93010; 99285

== ENCOUNTER → 2016-08-06 | Outpatient (CLI) | payer MEDICAID ==
[~2016-08-06] MED LIST changes: +MAGN64TA8 PO; +NFLOSA25TA PO; +SPIR25TA PO
== END ==
LOC: EMS 21:00
PROVIDERS: ATTEND Family Medicine
DX: R00.2 Palpitations (principal); R07.89 Other chest pain

== ENCOUNTER → 2016-09-03 | Outpatient (CLI) | payer MEDICAID ==
[~2016-09-03] MED LIST changes: +MAGN64TA8 PO; +NFLOSA25TA PO; +SPIR25TA PO
[2016-09-03 13:53] LABS: MEAN CORPUSCULAR HGB CONC 32.5 g/dL (31.0-37.0); MEAN PLATELET VOLUME 9.9 FL (6.0-9.5); WHITE BLOOD COUNT 5.56 10^3uL (4.0-11.0)
== END ==
LOC: LAB 13:34
PROVIDERS: ATTEND Internal Medicine Cardiovascular Disease
DX: Z01.812 Encounter for preprocedural laboratory examination (principal); I25.10 Atherosclerotic heart disease of native coronary artery without angina pectoris
CPT/HCPCS: 36415; 80048; 85027